=== PATIENT | female | born 1935 | race Caucasian/White ===

== ENCOUNTER → 2018-02-09 | Day surgery (SDC) | payer OTHER ==
--- NOTE | 2018-02-09 12:27 | RAD REPORT ---
EXAM DESCRIPTION: US - Breast Core BX w/US Guidance - 02/09/2018 10:56 am CLINICAL HISTORY: R92.8 COMPARISON: Mammogram and ultrasound studies January 29 TECHNIQUE: The patient presents for ultrasound-guided biopsy of a previously detailed 3.5 mm mass or irregular parenchyma in the periareolar upper-outer quadrant of the right breast. The ultrasound-guided core biopsy procedure, risks and alternatives were discussed with the patient i n detail. After answering all questions, both oral and written consent were obtained. Time out proced ure was performed. The patient had no contraindicated allergy or medication history. Preliminary imaging identified the 3.5 mm right breast finding. The anterior breast was prepped and d raped in the usual sterile fashion. From an inferior approach, skin and deeper tissues were anestheti zed with 1% lidocaine. Under direct sonographic visualization a 14 gauge vacuum assisted core biopsy needle was advanced and placed at the inferior margin of the small mass. There were a total of 3 core biopsies obtained under direct sonographic guidance. After the initial biopsy the mass was more rozina stinct. Breast tissue was further distorted after the second biopsy. At the conclusion of the procedure a localization clip was placed under sonographic guidance. Post biopsy imaging showed no hematoma or measurable bleeding within the breast. Hemostasis was obtai daphne at the skin site with a sterile bandage placed. Post procedure care and precaution instructions were given to the patient. IMPRESSION: 1. Ultrasound-guided core biopsy was performed of the 3.5 mm spiculated mass in the cindy areolar upper outer right breast. All obtained material was given to pathology for histologic assessm ent. 2. Post biopsy localization clip was placed under ultrasound guidance. 3. The mass is small and ill-defined. The mass and adjacent tissues were distorted by the biopsy proc edure. It could not be determined at the time of the biopsy that the small mass in question was defin itively sampled. If the final pathology report does not show malignancy or does not show a definitive etiology for the mass finding, continued close mammographic surveillance would be recommended due to a possibility of false-negative biopsy.
== END ==
LOC: DS 09:20
PROVIDERS: ATTEND Internal Medicine
DX: R92.8 Other abnormal and inconclusive findings on diagnostic imaging of breast (principal)
CPT/HCPCS: 19083; 88305

== ENCOUNTER 2018-05-02 20:54 | Emergency (ER) | payer OTHER ==
--- OUTSIDE RECORDS SUMMARY | 2018-05-02 20:56 | XMS REPORT | Continuity of Care Document ---
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 Oxycodone 5 mg, 1 tab, Inactive Route: PO, Drug 2018 [place] form: TAB, Q4H, Dosing Weight 55.455, kg, PRN Pain Score 4-6, Start date: 04/21/18 12:27:00 COLLECTIONS CLERK, Duration: 30 day, Stop date: 05/21/18 12:26:00 CDTNotes: (Same as: Roxicodone) Labetalol 10 mg, 2 mL, Inactive Route: IVP, Drug 2018 [place] form: INJ, Q5Min, Dosing Weight 55.455, kg, PRN Elevated BP, Start date: 04/21/18 12:27:00 COLLECTIONS CLERK, Duration: 5 doses or times, Stop date: Limited # of timesNotes: (Same as: Normodyne, Trandate) Push over 2 minutes Give bolus over 2-3 minutes. Ketorolac 30 mg, 1 mL, Inactive Route: IVP, Drug 2018 [place] form: INJ, ONCE, Dosing Weight 55.455, kg, Start date: 04/21/18 12:27:00 COLLECTIONS CLERK, Stop date: 04/21/18 12:27:00 CSTNotes: (Same as:Toradol) IV bolus must be given >15 seconds. Give IM administration slowly and deeply into the muscle. Not for use > 4 days MEDICATION WASTE Product Size: 30 mg Product Wasted: ___ mg Naloxone 0.1 mg, 0.25 mL, Inactive 04/21/ MH Route: SUB-Q, 2018 [place] Drug form: INJ, Q6H, Dosing Weight 55.455, kg, PRN Itching, Start date: 04/21/18 12:27:00 COLLECTIONS CLERK, Duration: 30 day, Stop date: 05/21/18 12:26:00 CDTNotes: Same as Narcan Meperidine 12.5 mg, 0.25 Inactive 20/ MH mL, Route: IVP, 2018 [place] Drug form: INJ, Q30Min, Dosing Weight 55.455, kg, PRN Other -See Comment, For shivering, Start date: 04/21/18 12:27:00 COLLECTIONS CLERK, Duration: 2 doses or times, Stop date: Limited # of timesNotes: (Same As: Demerol) Albuterol 0.83 2.49 mg, 3 mL, Inactive 04/21/ MH MG/ML Inhalant Route: NEB, Drug 2018 [place] Solution form: SOLN, Q20Min, Dosing Weight 55.455, kg, PRN Wheezing, Priority: Routine, Start date: 04/21/18 12:27:00 COLLECTIONS CLERK, Duration: 30 day, Stop date: 05/21/18 13:26:00 CDTNotes: SEE RT DOCUMENTATION (Same as: Proventil) Diphenhydramine 12.5 mg, 0.25 Inactive 20/ MH mL, Route: IVP, 2018 [place] Drug form: INJ, Q6H, Dosing Weight 55.455, kg, PRN Itching, Start date: 04/21/18 12:27:00 COLLECTIONS CLERK, Duration: 30 day, Stop date: 05/21/18 12:26:00 CDTNotes: (Same as: Benadryl) Promethazine 6.25 mg, 0.25 Inactive 20/ MH mL, Route: IVPB, 2019 [place] ONCE, Dosing Weight 55.455, kg, PRN Nausea & Vomiting, Start date: 04/21/18 12:27:00 CSTNotes: Do not give IV push. (Same as: Phenergan) Ondansetron 4 mg, 2 mL, Inactive Route: IVP, Drug 2018 [place] form: INJ, ONCE, Dosing Weight 55.455, kg, PRN Nausea & Vomiting, Start date: 04/21/18 12:27:00 CSTNotes: (Same as: Zofran) MEDICATION WASTE Product Size: 4 mg Product Wasted: ___ mg Flumazenil 0.2 mg, 2 mL, Inactive Route: IVP, Drug 2018 [place] form: INJ, PRN, Dosing Weight 55.455, kg, PRN Benzodiazepine Reversal, Initial dose, Start date: 04/21/18 12:27:00 COLLECTIONS CLERK, Duration: 30 day, Stop date: 05/21/18 13:26:00 CDTNotes: (Same as: Romazicon) Acetaminophen 1,000 mg, 2 tab, Inactive Route: PO, Drug 2018 [place] form: TAB, ONCE, Dosing Weight 55.455, kg, PRN Pain Score 1-3, Start date: 04/21/18 12:27:00 CSTNotes: Max acetaminophen 4000 mg/day (4 gm/day). (Same as: Tylenol Extra Strength) Hydromorphone 0.5 mg, 0.5 mL, Inactive Route: IVP, Drug 2018 [place] form: INJ, Q5Min, Dosing Weight 55.455, kg, PRN Pain Score 7-10, Start date: 04/21/18 12:27:00 COLLECTIONS CLERK, Duration: 4 doses or times, Stop date: Limited # of timesNotes: Same as: Dilaudid Hydralazine 10 mg, 0.5 mL, Inactive Route: IVP, Drug 2018 [place] form: INJ, Q20Min, Dosing Weight 55.455, kg, PRN Elevated BP, Start date: 04/21/18 12:27:00 COLLECTIONS CLERK, Duration: 2 doses or times, Stop date: Limited # of timesNotes: (Same as: Apresoline) Push over 5 minutes hydromorphone Route: IV, Drug Inactive (ANES) form: INJ, ONCE, 2018 [place] Stop date: 04/21/18 12:27:00 COLLECTIONS CLERK Ondansetron 4 mg, 2 mL, Active Route: IVP, Drug 2018 [place] form: INJ, Q6H, Dosing Weight 55.455, kg, PRN Nausea & Vomiting, Start date: 04/21/18 12:11:00 COLLECTIONS CLERK, Duration: 30 day, Stop date: 05/21/18 12:10:00 CDTNotes: (Same as: Zofran) MEDICATION WASTE Product Size: 4 mg Product Wasted: ___ mg Acetaminophen 650 mg, 2 tab, Active Route: PO, Drug 2018 [place] form: TAB, Q4H, Dosing Weight 55.455, kg, PRN Pain 1-3/Temp > 100.4 F, Start date: 04/21/18 12:11:00 COLLECTIONS CLERK, Duration: 30 day, Stop date: 05/21/18 12:10:00 CDTNotes: Do not exceed 4 gm/day. (Same as: Tylenol) Acetaminophen 325 1 tab, Route: Active MG / Hydrocodone PO, Drug Form: 2019 [place] Bitartrate 5 MG TAB, Dosing Oral Tablet Weight 55.455, kg, Q4H, PRN Pain Score 4-6, Start date: 04/21/18 12:11:00 COLLECTIONS CLERK, Duration: 30 day, Stop date: 05/21/18 12:10:00 CDTNotes: (Same as: [place] 325/5) Do not exceed 4gm/day of acetaminophen. Morphine 2 mg, 1 mL, Active Route: IVP, Drug 2018 [place] form: SOLN, Q3H, Dosing Weight 55.455, kg, PRN Pain Score 1-3, Start date: 04/21/18 12:11:00 COLLECTIONS CLERK, Duration: 30 day, Stop date: 05/21/18 12:10:00 CDT Calcium Chloride 1,000 mL, Rate: Active 0.0014 MEQ/ML / 125 ml/hr, 2019 [place] Potassium Infuse over: 8 Chloride 0.004 hr, Route: IV, MEQ/ML / Sodium Dosing Weight Chloride 0.103 55.455 kg, Total MEQ/ML / Sodium Volume: 1,000, Lactate 0.028 Start date: MEQ/ML Injectable 04/21/18 Solution 12:11:00 COLLECTIONS CLERK, Duration: 30 day, Stop date: 05/21/18 12:10:00 CDT, 1.56, m2 ketOROLAC (ANES) IV, ONCE Inactive 2018 [place] ondansetron Route: IV, Drug Inactive MH (ANES) form: INJ, ONCE, 2018 [place] Stop date: 04/21/18 11:40:00 COLLECTIONS CLERK phenylephrine Route: IV, Drug Inactive 04/21/ MH (ANES) form: INJ, ONCE, 2018 [place] Stop date: 04/21/18 10:55:00 COLLECTIONS CLERK dexamethasone Route: IV, Drug Inactive (ANES) form: INJ, ONCE, 2018 [place] Stop date: 04/21/18 10:55:00 COLLECTIONS CLERK ePHEDrine (ANES) Route: IV, Drug Inactive MH form: INJ, ONCE, 2018 [place] Stop date: 04/21/18 10:55:00 COLLECTIONS CLERK fentaNYL (ANES) Route: IV, Drug Inactive form: INJ, ONCE, 2018 [place] Stop date: 04/21/18 10:50:00 COLLECTIONS CLERK propofol (ANES) Route: IV, Drug Inactive 04/21/ MH form: INJ, ONCE, 2018 [place] Stop date: 04/21/18 10:50:00 COLLECTIONS CLERK lidocaine (ANES) Route: IV, Drug Inactive MH form: INJ, ONCE, 2018 [place] Stop date: 04/21/18 10:50:00 COLLECTIONS CLERK ceFAZolin (ANES) Route: IV, Drug Inactive 04/21/ MH form: INJ, ONCE, 2018 [place] Stop date: 04/21/18 10:45:00 COLLECTIONS CLERK acetaminophen Route: IV, Drug Inactive MH (ANES) 10 mg form: INJ, Start 2018 [place] date: 04/21/18 10:15:00 COLLECTIONS CLERK, Stop date: 04/21/18 11:15:00 COLLECTIONS CLERK Lactated Ringers Route: IV, Total Inactive Injection IV Volume: 1,000, 2018 [place] (ANES) 1000 mL Start date: 04/21/18 9:55:00 COLLECTIONS CLERK, Stop date: 04/21/18 10:55:00 COLLECTIONS CLERK Calcium Chloride 1,000 mL, Rate: Inactive 0.0014 MEQ/ML / 25 ml/hr, Infuse 2018 [place] Potassium over: 40 hr, Chloride 0.004 Route: IV, MEQ/ML / Sodium Dosing Weight Chloride 0.103 55.455 kg, Total MEQ/ML / Sodium Volume: 1,000, Lactate 0.028 Start date: MEQ/ML Injectable 04/21/18 7:35:00 Solution COLLECTIONS CLERK, Duration: 30 day, Stop date: 05/21/18 7:34:00 CDT, 1.56, m2 Acetaminophen 325 650 mg=2 tab, On Hold MG Oral Tablet PO, Q4H, PRN 2018 [place] [Tylenol] Pain Score 6-10 Esomeprazole 40 40 mg=1 cap, PO, On Hold MG Enteric Coated Daily 2018 [place] Capsule Allergies, Adverse Reactions, Alerts Substance Category Reaction Severity Reaction Status Date Comments Source type Reported Stadol Assertion Seizure, Drug Active MH NOS, Hives allergy [place] Adhesive Assertion Itching, Allergy to Active MH Redness substance [place] Immunizations Immunization Date Given Site Status Last Updated Comments Source Results Order Name Results Value Reference Date Interpretation Comments Source Range Parthenon Parthenon Patient Name: SIDNEY SOTOMAYOR 04/21 - [facility] Node Node /2019 - [place] injection injection : 1935; Age: 82 years y/o Female NM NM MR: [id number] Read by: José Miguel Nagy MD Dictated Date/time: 04/21/18 10:32 Electronically Signed by: José Miguel Nagy MD 04/21/18 11:01 FINAL REPORT * Parthenon node injection (nuclear medicine) HISTORY: 82-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 The patient was referred for sentinel node nuclear medicine injection. TECHNIQUE: A generous portion of the right anterior breast was prepped with ChloraPrep and draped. A total of 1 mCi of technetium 99 sulfur colloid was injected divided by 4 aliquots into the subcuticul ar regions of the areola at 12:00, 3:00, 6:00, 9:00. The patient tolerated the procedure well and suffered no immediate complications. IMPRESSION: 1. Nuclear medicine sentinel node injection, right breast. SL: [id number] Breast Breast 04/07 - [facility] Complete Complete /2018 - [place] Ok US Ok US Read by: Rhea Lebron MD Dictated Date/time: 04/08/18 16:54 COMPLETE ULTRASOUND OF BOTH BREASTS AND AXILLA: 04/07/2018 Electronically Signed by: Rhea Lebron MD 04/08/18 16 :54 FINAL REPORT CLINICAL: D05.11 Intraductal Carcinoma In Situ Of Right Breast/Rt Breast Ca. COMPARISON:Comparison is made to exams dated: 04/07/2018 mammogram - [facility], 02/09/2018 ultrasound, 01/29/2018 mammogram, 2017 ultrasound, 06/23/2017 ultrasound, and 06/23/2017 mammogram. TECHNIQUE: Color flow and real-time ultrasound of both breasts four quadrants, retroareolar, bilateral axilla, right infraclavicular and internal mammary regions were performed. FINDINGS: There is 1.2 cm x 0.8 cm x 0.8 cm irregular mass in the right breast at 10 o'clock middle depth 4 cm from the nipple. This irregular mass is hypoechoic. This correlates with mammography findings. Color flow imaging demonstrates that there is vascularity present. There also is 1 cm x 1 cm x 0.8 cm irregular mass with an indistinct margin in the right breast at 10 o'clock middle depth 5 cm from the nipple. This irregular mass is hypoechoic. This correlates with mammography findings. Color flow imaging demonstrates that there is vascularity present. Additionally, there is 0.5 cm x 0.4 cm x 0.4 cm irregular mass in the right breast at 10 o'clock anterior depth 2 cm from the nipple. This irregular mass is hypoechoic. Color flow imaging demonstrates that there is vascularity present. Multiple additional suspicious subcentimeter hypoechoic masses are identified at the right breast 10 o'clock position, 6 cm from the nipple and 11 o'clock position, 5 cm from the nipple. The extent of abnormality by ultrasound measures approximately 4.5 cm at the right breast 10 o'clock position. The biopsy clip denoting the site of DCIS with suspicion for microinvasion is not definitively identified by sonography. There are no solid or cystic masses identified throughout the left breast. No abnormalities are seen in the bilateral axilla and right infraclavicular and internal mammary regions. IMPRESSION: KNOWN BIOPSY PROVEN MALIGNANCY RECOMMENDATION: Multiple irregular hypoechoic masses in the right breast 10 o'clock and 11 o'clock positions, as described above, highly suspicious for multifocal malignancy. The site of biopsy and biopsy cl ip denoting DCIS with microinvasion is not definitively identified by sonography. If breast conservation is being considered, biopsies of the masses at the right breast 10 o'clock position, 2 cm f rom the nipple and 10 o'clock position, 6 cm from the nipple, as described above may be performed for extent of disease. Additionally, breast MRI may be considered to assess full extent of disease if clinically indicated. Appropriate management and treatment of the patient's known malignancy is recommended. This exam was interpreted at [id number] for NABIL Jaimes 15. SUMMARY: These findings were discussed with the patient at the time of examination. Professional services are provided by the [facility] [place] [facility]. Rhea Lebron M.D. ms/:04/08/2018 16:54:04 Dressing Room Porter(s): Deanna [place] letter sent: BI-RADS 6 Ultrasound BI-RADS: 6 Known biopsy proven malignancy Breast Breast 04/07 - OPIJacek Mammo Diag Mammo Dia - [place] OK w sirisha OK w sirisha incl CAD incl CAD REANNA MA Read by: Rhea Lebron MD Dictated Date/time: 04/08/18 16:25 BILATERAL DIGITAL DIAGNOSTIC MAMMOGRAM 3D/2D WITH CAD: 04/07/2018 Electronically Signed by: Rhea Lebron MD 04/08/18 16 :25 FINAL REPORT CLINICAL: D05.11 Intraductal Carcinoma In Situ Of Right Breast/D05.11 Intraductal Carcinoma In Situ Of Right Breast. Current study was evaluated with a Computer Aided Detection (CAD) system. COMPARISON:Comparison is made to exams dated: 06/23/2017 mammogram and mammogram. TECHNIQUE: Digital Breast Tomosynthesis was performed and utilized for Interpretation. Current study was also evaluated with a Computer Aided Detection (CAD) system. FINDINGS: There are scattered fibroglandular densities in both breasts. There is a biopsy clip from outside facility ultrasound guided biopsy at the right breast 10 o'clock position, 3 cm from the nipple. Biopsy at this site revealed DCIS with suspicion of microinvasi on. No discrete associated mass is identified at this site. There are benign appearing calcifications in both breasts. There is 3.3 cm x 3 cm x 2.3 cm irregular mass with amorphous calcifications in the right breast at 10 o'clock middle depth 4 cm from the nipple. There is architectural distortion associated with the mass. There also is 0.4 cm irregular asymmetry in the right breast anterior depth central to the nipple seen on the craniocaudal view only 2.5 cm from the nipple. Additionally, there is 0.4 cm irregular asymmetry in the right breast anterior depth central to the nipple seen on the craniocaudal view only 4 cm from the nipple. No other significant masses, calcifications, or other findings are seen in either breast. IMPRESSION: INCOMPLETE: NEEDS ADDITIONAL IMAGING EVALUATION RECOMMENDATION:The 3.3 cm x 3 cm x 2.3 cm irregular mass in the right breast at 10 o'clock middle depth is indeterminate. An ultrasound is recommended. The 0.4 cm irregular asymmetry in the right breast anterior depth central to the nipple seen on the craniocaudal view only is indeterminate. An ultrasound is recommended. The 0.4 cm irregular asymmetry in the right breast anterior depth central to the nipple seen on the craniocaudal view only is indeterminate. An ultrasound is recommended. This exam was interpreted at [id number] for NABIL Jaimes 15. Professional services are provided by the [facility] [place] [facility]. Rhea Lebron M.D., ms/ismael:04/08/2018 16:25:53 Dressing Room Porter(s): Deanna [place] Mammogram BI-RADS: 0 Indeterminate Vital Signs Vital Sign Value Date Comments Source Systolic (mm Hg) 128 04/21/2018 [place] Diastolic (mm Hg) 60 04/21/2018 [facility] Respitory Rate 13 04/21/2018 [facility] Systolic (mm Hg) 126 04/21/2018 [place] Diastolic (mm Hg) 56 04/21/2018 [facility] Respitory Rate 12 04/21/2018 [facility] Systolic (mm Hg) 120 04/21/2018 [facility] Diastolic (mm Hg) 50 04/21/2018 [facility] Respitory Rate 21 04/21/2018 [facility] Heart Rate 69 04/19/2018 [facility] Temperature Oral (F) 98.1 F 04/19/2018 [facility] Weight 55.455 04/19/2018 [facility] BMI Calculated 23.1 04/19/2018 [facility] Height 154.94 cm 04/19/2018 [facility] Encounters Location Location Encounter Encounter Reason Attending ADM DC Status Source Details Type Number For Provider Date Date Visit [facility] Outpt Diag [id number] Trav 04/07 04/08 [facility] II /2018 [facility] Outpatient [id number] Trav 04/21 04/22 [facility] II /2018 [facility] Procedures Procedure Code Date Perfomer Comments Source Rotator cuff repair [id number] 03/02/19 [facility] 19 Esophagogastroduodenoscopy [id number] [facility] Hemorrhoidectomy [id number] [facility] Hysterectomy [id number] [facility] Suspension of bladder [id number] [facility]
--- OUTSIDE RECORDS SUMMARY | 2018-05-02 20:56 | XMS REPORT | Summary of Care ---
:1935 Author Organization [facility] Outpatient Imaging [place] Address [facility] [place], [place] [address]- Encounter HQ Encntr_alias(FIN) [id number] Date(s): 04/07/18 - 04/07/18 [facility] Outpatient Imaging [address], [address] [place] [address]- [id number] Discharge Disposition: Home or Self Care Attending Physician: Trav Felipe MD Referring Physician: Trav Felipe MD Vital Signs No data available for this section Problem List No data available for this section Allergies, Adverse Reactions, Alerts No data available for this section Medications No data available for this section Results No data available for this section Immunizations No data available for this section Procedures No data available for this section Social History No data available for this section Assessment and Plan No data available for this section
--- OUTSIDE RECORDS SUMMARY | 2018-05-02 20:56 | XMS REPORT | Summary of Care ---
:1935 Author Organization [facility] Address [id number] [place] [phone]- Encounter HQ Deneenr_jewel(FIN) [phone] Date(s): 04/21/18 - 04/21/18 [facility] [id number] [place] [address] [phone] Discharge Disposition: Home or Self Care Attending Physician: Trav Felipe MD Referring Physician: Trav Felipe MD Vital Signs Most recent to oldest 1 2 3 [Reference Range]: Height 154.94 cm (04/19/18 11:09 AM) Temperature Oral [96.4-99.1 98.1 DegF DegF] (04/19/18 11:26 AM) Blood Pressure [90-140/60-90 128/60 mmHg 126/56 mmHg 120/50 mmHg mmHg] (04/21/18 2:15 PM) (04/21/18 2:00 PM) (04/21/18 1:45 PM) Respiratory Rate [14-20 BRMIN] 13 BRMIN 12 BRMIN 21 BRMIN *LOW* *LOW* *HI* (04/21/18 2:15 PM) (04/21/18 2:00 PM) (04/21/18 1:45 PM) Peripheral Pulse Rate [60-100 69 bpm bpm] (04/19/18 11:26 AM) Weight 55.455 kg (04/19/18 11:09 AM) Body Mass Index 23.1 m2 (04/19/18 11:09 AM) Problem List Condition Effective Dates Status Health Status Informant 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 (Same as: Tylenol) Start Date: 04/21/18 Stop Date: 05/21/18 Status: Orderedacetaminophen (ANES) 10 mg Route: IV, Drug form: INJ, Start date: 04/21/18 10:15:00 QUARTER SUPERVISOR, Stop date: 11:15:00 QUARTER SUPERVISOR Start Date: 04/21/18 Stop Date: 04/21/18 Status: Completedacetaminophen-hydrocodone 325 mg-5 mg oral tablet 1 tab, Route: PO, Drug Form: TAB, Dosing Weight 55.455, kg, Q4H, PRN Pain Score 4-6, Start date: 04/21/18 12:11:00 QUARTER SUPERVISOR, Duration: 30 day, Stop date: 05/21/18 12 :10:00 CDT Notes: (Same as: [place] 325/5) Do not exceed 4gm/day of acetaminophen. Start Date: 04/21/18 Stop Date: 05/21/18 Status: OrderedANES acetaminophen 1,000 mg, 2 tab, Route: PO, Drug form: TAB, ONCE, Dosing Weight 55.455, kg, PRN Pain Score 1-3, Start date: 04/21/18 12:27:00 QUARTER SUPERVISOR Notes: Max acetaminophen 4000 mg/day (4 gm/day). (Same as: Tylenol Extra Strength) Start Date: 04/21/18 Stop Date: 04/21/18 Status: DiscontinuedANES albuterol 0.083% inhalation solution 2.49 mg, 3 mL, Route: NEB, Drug form: SOLN, Q20Min, Dosing Weight 55.455, kg, PRN Wheezing, Priority: Routine, Start date: 04/21/18 12:27:00 QUARTER SUPERVISOR, Duration: 30 day, Stop date: 05/21/18 13:26:00 CDT Notes: SEE RT DOCUMENTATION (Same as: Gilberto) Start Date: 04/21/18 Stop Date: 04/21/18 Status: DiscontinuedANES diphenhydrAMINE 12.5 mg, 0.25 mL, Route: IVP, Drug form: INJ, Q6H, Dosing Weight 55.455, kg, PRN Itching, Start date: 04/21/18 12:27:00 QUARTER SUPERVISOR, Duration: 30 day, Stop date: 12:26:00 CDT Notes: (Same as: Benadryl) Start Date: 04/21/18 Stop Date: 04/21/18 Status: DiscontinuedANES fentaNYL 25 microgram, 0.5 mL, Route: IVP, Drug form: INJ, Q5Min, Dosing Weight 55.455, kg, PRN Pain Score 4-6, Priority: Routine, Start date: 04/21/18 12:27:00 QUARTER SUPERVISOR, Duration: 4 doses or times, Stop date: Limited # of times Notes: (Same as: Sublimaze) Preservative free. Start Date: 04/21/18 Stop Date: 04/21/18 Status: DiscontinuedANES fentaNYL 50 microgram, 1 mL, Route: IVP, Drug form: INJ, Q5Min, Dosing Weight 55.455, kg , PRN Pain Score 7-10, Priority: Routine, Start date: 04/21/18 12:27:00 QUARTER SUPERVISOR, Duration: 2 doses or times, Stop date: Limited # of times Notes: (Same as: Sublimaze) Preservative free. Start Date: 04/21/18 Stop Date: 04/21/18 Status: DiscontinuedANES flumazenil 0.2 mg, 2 mL, Route: IVP, Drug form: INJ, PRN, Dosing Weight 55.455, kg, PRN Benzodiazepine Reversal, Initial dose, Start date: 04/21/18 12:27:00 QUARTER SUPERVISOR, Duration: 30 day, Stop date: 05/21/18 13:26:00 CDT Notes: (Same as: Romazicon) Start Date: 04/21/18 Stop Date: 04/21/18 Status: DiscontinuedANES hydrALAZINE 10 mg, 0.5 mL, Route: IVP, Drug form: INJ, Q20Min, Dosing Weight 55.455, kg, PRN Elevated BP, Start date: 04/21/18 12:27:00 QUARTER SUPERVISOR, Duration: 2 doses or times, Stop date: Limited # of times Notes: (Same as: Apresoline)Push over 5 minutes Start Date: 04/21/18 Stop Date: 04/21/18 Status: DiscontinuedANES HYDROmorphone 0.5 mg, 0.5 mL, Route: IVP, Drug form: INJ, Q5Min, Dosing Weight 55.455, kg, PRN Pain Score 7-10, Start date: 04/21/18 12:27:00 QUARTER SUPERVISOR, Duration: 4 doses or times, Stop date: Limited # of times Notes: Same as: Dilaudid Start Date: 04/21/18 Stop Date: 04/21/18 Status: DiscontinuedANES ketOROLAC 30 mg, 1 mL, Route: IVP, Drug form: INJ, ONCE, Dosing Weight 55.455, kg, Start date: 04/21/18 12:27:00 QUARTER SUPERVISOR, Stop date: 04/21/18 12:27:00 QUARTER SUPERVISOR Notes: (Same as:Toradol) IV bolus must be given >15 seconds. Give IM administration slowly and deeply into the muscle.Not for use > 4 days MEDICATION WASTE Product Size: 30 mgProduct Wasted: ___ mg Start Date: 04/21/18 Stop Date: 04/21/18 Status: DiscontinuedANES labetalol 10 mg, 2 mL, Route: IVP, Drug form: INJ, Q5Min, Dosing Weight 55.455, kg, PRN Elevated BP, Start date: 04/21/18 12:27:00 QUARTER SUPERVISOR, Duration: 5 doses or times, Stop date: Limited # of times Notes: (Same as: Normodyne, Trandate)Push over 2 minutes Give bolus over 2-3 minutes. Start Date: 04/21/18 Stop Date: 04/21/18 Status: DiscontinuedANES meperidine 12.5 mg, 0.25 mL, Route: IVP, Drug form: INJ, Q30Min, Dosing Weight 55.455, kg, PRN Other -See Comment, For shivering, Start date: 04/21/18 12:27:00 QUARTER SUPERVISOR, Duration: 2 doses or times, Stop date: Limited # of times Notes: (Same As: Demerol) Start Date: 04/21/18 Stop Date: 04/21/18 Status: DiscontinuedANES naloxone 0.1 mg, 0.25 mL, Route: SUB-Q, Drug form: INJ, Q6H, Dosing Weight 55.455, kg, PRN Itching, Start date: 04/21/18 12:27:00 QUARTER SUPERVISOR, Duration: 30 day, Stop date: 12:26:00 CDT Notes: Same as Narcan Start Date: 04/21/18 Stop Date: 04/21/18 Status: DiscontinuedANES naloxone 0.4 mg, 1 mL, Route: IVP, Drug form: INJ, Q2MIN, Dosing Weight 55.455, kg, PRN Narcotic Reversal, Start date: 04/21/18 12:27:00 QUARTER SUPERVISOR, Duration: 8 doses or times , Stop date: Limited # of times Notes: Same as Narcan Start Date: 04/21/18 Stop Date: 04/21/18 Status: DiscontinuedANES ondansetron 4 mg, 2 mL, Route: IVP, Drug form: INJ, ONCE, Dosing Weight 55.455, kg, PRN Nausea & Vomiting, Start date: 04/21/18 12:27:00 QUARTER SUPERVISOR Notes: (Same as: Parker) MEDICATION WASTE Product Size: 4 mgProduct Wasted: ___ mg Start Date: 04/21/18 Stop Date: 04/21/18 Status: DiscontinuedANES oxyCODONE 5 mg, 1 tab, Route: PO, Drug form: TAB, Q4H, Dosing Weight 55.455, kg, PRN Pain Score 4-6, Start date: 04/21/18 12:27:00 QUARTER SUPERVISOR, Duration: 30 day, Stop date: 05/21 12:26:00 CDT Notes: (Same as: Roxicodone) Start Date: 04/21/18 Stop Date: 04/21/18 Status: DiscontinuedANES oxyCODONE 10 mg, 2 tab, Route: PO, Drug form: TAB, Q4H, Dosing Weight 55.455, kg, PRN Pain Score 7-10, Start date: 04/21/18 12:27:00 QUARTER SUPERVISOR, Duration: 30 day, Stop date : 05/21/18 12:26:00 CDT Notes: (Same as: Roxicodone) Start Date: 04/21/18 Stop Date: 04/21/18 Status: DiscontinuedANES promethazine + Sodium Chloride 0.9% IV 50 mL 6.25 mg, 0.25 mL, Route: IVPB, ONCE, Dosing Weight 55.455, kg, PRN Nausea & Vomiting, Start date: 04/21/18 12:27:00 QUARTER SUPERVISOR Notes: Do not give IV push. (Same as: Phenergan) Start Date: 04/21/18 Stop Date: 04/21/18 Status: DiscontinuedceFAZolin (ANES) Route: IV, Drug form: INJ, ONCE, Stop date: 04/21/18 10:45:00 QUARTER SUPERVISOR Start Date: 04/21/18 Stop Date: 04/21/18 Status: Completeddexamethasone (ANES) Route: IV, Drug form: INJ, ONCE, Stop date: 04/21/18 10:55:00 QUARTER SUPERVISOR Start Date: 04/21/18 Stop Date: 04/21/18 Status: CompletedePHEDrine (ANES) Route: IV, Drug form: INJ, ONCE, Stop date: 04/21/18 10:55:00 QUARTER SUPERVISOR Start Date: 04/21/18 Stop Date: 04/21/18 Status: Completedesomeprazole 40 mg oral delayed release capsule 40 mg=1 cap, PO, Daily Start Date: 04/19/18 Status: SuspendedfentaNYL (ANES) Route: IV, Drug form: INJ, ONCE, Stop date: 04/21/18 10:50:00 QUARTER SUPERVISOR Start Date: 04/21/18 Stop Date: 04/21/18 Status: Completedhydromorphone (ANES) Route: IV, Drug form: INJ, ONCE, Stop date: 04/21/18 12:27:00 QUARTER SUPERVISOR Start Date: 04/21/18 Stop Date: 04/21/18 Status: CompletedketOROLAC (ANES) IV, ONCE Start Date: 04/21/18 Stop Date: 04/21/18 Status: CompletedLactated Ringers Injection IV (ANES) 1000 mL Route: IV, Total Volume: 1,000, Start date: 04/21/18 9:55:00 QUARTER SUPERVISOR, Stop date: 10:55:00 QUARTER SUPERVISOR Start Date: 04/21/18 Stop Date: 04/21/18 Status: CompletedLactated Ringers Injection IV 1,000 mL 1,000 mL, Rate: 25 ml/hr, Infuse over: 40 hr, Route: IV, Dosing Weight 55.455 kg , Total Volume: 1,000, Start date: 04/21/18 7:35:00 QUARTER SUPERVISOR, Duration: 30 day, Stop date: 05/21/18 7:34:00 CDT, 1.56, m2 Start Date: 04/21/18 Stop Date: 04/21/18 Status: DiscontinuedLactated Ringers Injection IV 1,000 mL 1,000 mL, Rate: 125 ml/hr, Infuse over: 8 hr, Route: IV, Dosing Weight 55.455 kg , Total Volume: 1,000, Start date: 04/21/18 12:11:00 QUARTER SUPERVISOR, Duration: 30 day, Stop date: 05/21/18 12:10:00 CDT, 1.56, m2 Start Date: 04/21/18 Stop Date: 05/21/18 Status: Orderedlidocaine (ANES) Route: IV, Drug form: INJ, ONCE, Stop date: 04/21/18 10:50:00 QUARTER SUPERVISOR Start Date: 04/21/18 Stop Date: 04/21/18 Status: Completedmorphine Sulfate 2 mg, 1 mL, Route: IVP, Drug form: SOLN, Q3H, Dosing Weight 55.455, kg, PRN Pain Score 1-3, Start date: 04/21/18 12:11:00 QUARTER SUPERVISOR, Duration: 30 day, Stop date: 05/21/18 12:10:00 CDT Start Date: 04/21/18 Stop Date: 05/21/18 Status: Orderedondansetron 4 mg, 2 mL, Route: IVP, Drug form: INJ, Q6H, Dosing Weight 55.455, kg, PRN Nausea & Vomiting, Start date: 04/21/18 12:11:00 QUARTER SUPERVISOR, Duration: 30 day, Stop date: 05/21/18 12:10:00 CDT Notes: (Same as: Zofran) MEDICATION WASTE Product Size: 4 mgProduct Wasted: ___ mg Start Date: 04/21/18 Stop Date: 05/21/18 Status: Orderedondansetron (ANES) Route: IV, Drug form: INJ, ONCE, Stop date: 04/21/18 11:40:00 QUARTER SUPERVISOR Start Date: 04/21/18 Stop Date: 04/21/18 Status: Completedphenylephrine (ANES) Route: IV, Drug form: INJ, ONCE, Stop date: 04/21/18 10:55:00 QUARTER SUPERVISOR Start Date: 04/21/18 Stop Date: 04/21/18 Status: Completedpropofol (ANES) Route: IV, Drug form: INJ, ONCE, Stop date: 04/21/18 10:50:00 QUARTER SUPERVISOR Start Date: 04/21/18 Stop Date: 04/21/18 Status: CompletedTylenol 325 mg oral tablet 650 mg=2 tab, PO, Q4H, PRN Pain Score 6-10 Start Date: 04/19/18 Status: Suspended Results No data available for this section Immunizations No data available for this section Procedures Procedure Date Related Diagnosis Body Site Status Rotator cuff repair 03/2018 Completed Esophagogastroduodenoscopy Completed Hemorrhoidectomy Completed Hysterectomy Completed Suspension of bladder Completed Social History Social History Type Response Smoking Status Never smoker; Exposure to Tobacco Smoke None; Cigarette Smoking Last 365 Days No; Reg Smoking Cessation Counseling No entered on: 04/21/18 Assessment and Plan No data available for this section
--- OUTSIDE RECORDS SUMMARY | 2018-05-02 20:57 | XMS REPORT ---
:1935 [facility] Address [address] [place] [address] [address] [place] [address] Care Team Providers Name Role Phone Unavailable Unavailable Unavailable Payers Payer Name Policy Type Policy Number Effective Date Expiration Date Problems This patient has no known problems. Allergies, Adverse Reactions, Alerts Allergy Name Allergy Status Severity Reaction(s) Onset Inactive Treating Comments Type Date Date Clinician polyester DA Active SV 2018-01 00:00:0 0 adhesive tape DA Active MO 2018-01 00:00:0 0 butorphanol DA Active SV 2018-01 00:00:0 0 polyester DA Active SV 2018-01 00:00:0 0 butorphanol DA Active SV 2018-01 00:00:0 0 adhesive tape DA Active MO 2018-01 00:00:0 0 Medications This patient has no known medications.
[2018-05-02] MEDS ORDERED: NA CHLORIDE 0.9% 1,000 ML ONE (22:54)
[2018-05-02 23:30] LABS: Absolute Lymphocytes (CBC) 2.2 K/uL (0.7-4.9); Absolute Monocytes 0.6 K/uL (0.1-1.3); Absolute Neutrophil 4.8 K/uL (1.8-8.0); Basophils % 0.6 % (0-1.3); Eosinophils % 2.8 % (0-4.4); Hematocrit 32.8 % (36.0-45.0); Lymphocytes % 28.1 % (15.3-44.8); MPV 9.9 fL (7.6-11.3); Monocytes % 7.7 % (3.3-12.3); RBC Red Blood Cell Count 3.74 M/uL (3.86-4.86)
[2018-05-02 23:41] LABS: Albumin 3.5 g/dL (3.4-5.0); Bilirubin Total 0.3 mg/dL (0.2-1.0); Potassium 3.9 mmol/L (3.5-5.1); Protein, Total 7.4 g/dL (6.4-8.2)
[2018-05-03 00:04] LABS: Urine Blood 2+ (NEG); Urine Glucose NEGATIVE (NEG); Urine Protein NEGATIVE (NEG)
--- NOTE | 2018-05-03 00:13 | ER ---
Nurse's Notes [facility] Name: Shivani Flynn Age: 82 yrs Sex: Female : 1935 Arrival Date: 05/02/2018 Time: 20:56 Bed 30 Private MD: Derrek Walker V Diagnosis: Cellulitis and acute lymphangitis of trunk;Urinary tract infection, site not specified Presentation: 05/02 21:00 Presenting complaint: Patient states: I had a Right mastectomy with Dr. Rodriguez at [address] 04/21 and I have some concerns about my wound and my wound drain. Pt denies fever, chills. Transition of care: patient was not received from another setting of care. Onset of symptoms was May 02, 2018. Risk Assessment: Do you want to hurt yourself or someone else? Patient reports no desire to harm self or others. Initial Sepsis Screen: Does the patient meet any 2 criteria? No. Patient's initial sepsis screen is negative. Does the patient have a suspected source of infection? No. Patient's initial sepsis screen is negative. Care prior to arrival: None. 21:00 Method Of Arrival: Ambulatory la1 21:00 Acuity: AUDREY 3 la1 Historical: - Allergies: 21:00 Stadol; la1 21:00 NO Antibiotics By mouth; la1 - Home Meds: 21:00 omeprazole 40 mg Oral cpDR 1 cap once daily [Active]; la1 - PMHx: 21:00 breast cancer; la1 - PSHx: 21:00 Right Mastectomy; la1 - Immunization history:: Adult Immunizations up to date. - Social history:: Smoking status: Patient/guardian denies using tobacco. - Ebola Screening: : No symptoms or risks identified at this time. - Family history:: not pertinent. Screenin:10 Abuse screen: Denies threats or abuse. Denies injuries from another. Nutritional mg2 screening: No deficits noted. Tuberculosis screening: No symptoms or risk factors identified. 21:36 Fall Risk None identified. mg2 Assessment: 21:33 General: Appears in no apparent distress. comfortable, Behavior is calm, cooperative. mg2 Pain: Complains of pain in right chest Pain does not radiate. Pain currently is 1 out of 10 on a pain scale. Quality of pain is described as aching, Pain began gradually, Is intermittent, Aggravated by upon palpation. Neuro: Level of Consciousness is awake, alert, obeys commands, Oriented to person, place, time, situation. Cardiovascular: Capillary refill < 3 seconds Patient's skin is warm and dry. Respiratory: Airway is patent Respiratory effort is even, unlabored, Respiratory pattern is regular, symmetrical. GI: No signs and/or symptoms were reported involving the gastrointestinal system. : No signs and/or symptoms were reported regarding the genitourinary system. EENT: No signs and/or symptoms were reported regarding the EENT system. Derm: Skin is intact, is healthy with good turgor, Skin is pink, warm \T\ dry. normal, Wound noted right breast Wound is closed, healing but with yellowish discoloration and swelling post op wound. Musculoskeletal: Circulation, motion, and sensation intact. Capillary refill < 3 seconds, Swelling present in right chest. Vital Signs: 21:04 BP 139 / 79; Pulse 77; Resp 18; Temp 97.9(O); Pulse Ox 100% on R/A; Weight 54.43 kg; la1 Height 5 ft. 1 in. (154.94 cm); Pain 0/10; 05/03 00:28 BP 145 / 78; Pulse 80; Resp 18; Pulse Ox 100% on R/A; Pain 0/10; mg2 05/02 21:04 Body Mass Index 22.67 (54.43 kg, 154.94 cm) la1 ED Course: 05/02 20:56 Patient arrived in ED. am2 20:57 Derrek Walker MD is Private Physician. am2 21:02 Triage completed. la1 21:02 Arm band placed on left wrist. la1 21:09 Dale Medina, EDILBERTO is Primary Nurse. mg2 21:35 No provider procedures requiring assistance completed. mg2 21:36 Patient has correct armband on for positive identification. mg2 22:00 Inserted saline lock: 20 gauge in left antecubital area, using aseptic technique. Blood mg2 collected. 22:05 Luis Cerda MD is Attending Physician. [facility] 05/03 00:12 Chest Single View XRAY In Process Unspecified. EDMS 00:29 IV discontinued, intact, bleeding controlled, No redness/swelling at site. Pressure mg2 dressing applied. Administered Medications: 05/02 23:08 Drug: NS 0.9% 500 ml Route: IV; Rate: bolus; Site: left antecubital; mg2 05/03 00:28 Follow up: Response: No adverse reaction; IV Status: Completed infusion mg2 05/02 23:08 Drug: NS 0.9% 1000 ml Route: IV; Rate: 125 ml/hr; Site: left antecubital; mg2 05/03 00:27 Follow up: Response: No adverse reaction; IV Status: Order to discontinue infusion mg2 00:25 Drug: Rocephin - (cefTRIAXone) 1 grams Route: IVPB; Infused Over: 30 mins; Site: left mg2 antecubital; 00:27 Follow up: Response: No adverse reaction; Medication administered at discharge. mg2 00:26 Drug: Bactrim (160 mg-800 mg (DS) 1 tablet Route: PO; mg2 00:27 Follow up: Response: No adverse reaction; Medication administered at discharge. mg2 Outcome: 00:12 Discharge ordered by . michael 00:29 Discharged to home via wheelchair, with family. mg2 00:29 Condition: stable 00:29 Discharge instructions given to patient, family, Instructed on discharge instructions, follow up and referral plans. medication usage, Demonstrated understanding of instructions, follow-up care, medications, Prescriptions given X 1. 00:29 Patient left the ED. mg2 Signatures: Dispatcher [employer] EDMS Luis Cerda MD MD cha Attema, Lee, RN RN Felicita Durham Michele, RN RN mg2 Corrections: (The following items were deleted from the chart) 00:29 05/02 21:35 Patient did not have IV access during this emergency room visit. mg2 mg2
--- NOTE | 2018-05-03 00:13 | EDPHYS ---
Physician Documentation [facility] Name: Shivani Flynn Age: 82 yrs Sex: Female : 1935 Arrival Date: 05/02/2018 Time: 20:56 Bed 30 Private MD: Derrek Walker V ED Physician Luis Cerda HPI: 05/02 22:33 This 82 yrs old Female presents to ER via Ambulatory with complaints of Post michael Surgical Pain - Mastectomy concerns. 22:33 The patient presents with an abscess of the chest, The patient presents with cellulitis michael of the chest. Description: The affected area is small. Onset: The symptoms/episode began/occurred 4 day(s) ago. Associated signs and symptoms: The patient has no apparent associated signs or symptoms. Modifying factors: the symptoms are alleviated by remaining still, repositioning , the symptoms are aggravated by movement, pressure, squeezing the lesion and expressing the contents. Severity of symptoms: At their worst the symptoms were mild. The patient has not experienced similar symptoms in the past. Historical: - Allergies: 21:00 Stadol; la1 21:00 NO Antibiotics By mouth; la1 - Home Meds: 21:00 omeprazole 40 mg Oral cpDR 1 cap once daily [Active]; la1 - PMHx: 21:00 breast cancer; la1 - PSHx: 21:00 Right Mastectomy; la1 - Immunization history:: Adult Immunizations up to date. - Social history:: Smoking status: Patient/guardian denies using tobacco. - Ebola Screening: : No symptoms or risks identified at this time. - Family history:: not pertinent. ROS: 22:33 Constitutional: Negative for fever, chills, and weight loss, Eyes: Negative for injury, michael pain, redness, and discharge, ENT: Negative for injury, pain, and discharge, Neck: Negative for injury, pain, and swelling, Cardiovascular: Negative for chest pain, palpitations, and edema, Respiratory: Negative for shortness of breath, cough, wheezing, and pleuritic chest pain, Abdomen/GI: Negative for abdominal pain, nausea, vomiting, diarrhea, and constipation, Back: Negative for injury and pain, : Negative for injury, bleeding, discharge, and swelling, MS/Extremity: Negative for injury and deformity, Neuro: Negative for headache, weakness, numbness, tingling, and seizure. 22:33 Skin: Positive for erythema, swelling, of the chest. Exam: 22:33 Constitutional: This is a well developed, well nourished patient who is awake, alert, michael and in no acute distress. Head/Face: Normocephalic, atraumatic. Eyes: Pupils equal round and reactive to light, extra-ocular motions intact. Lids and lashes normal. Conjunctiva and sclera are non-icteric and not injected. Cornea within normal limits. Periorbital areas with no swelling, redness, or edema. ENT: Nares patent. No nasal discharge, no septal abnormalities noted. Tympanic membranes are normal and external auditory canals are clear. Oropharynx with no redness, swelling, or masses, exudates, or evidence of obstruction, uvula midline. Mucous membranes moist. Neck: Trachea midline, no thyromegaly or masses palpated, and no cervical lymphadenopathy. Supple, full range of motion without nuchal rigidity, or vertebral point tenderness. No Meningismus. Cardiovascular: Regular rate and rhythm with a normal S1 and S2. No gallops, murmurs, or rubs. Normal PMI, no JVD. No pulse deficits. Respiratory: Lungs have equal breath sounds bilaterally, clear to auscultation and percussion. No rales, rhonchi or wheezes noted. No increased work of breathing, no retractions or nasal flaring. Abdomen/GI: Soft, non-tender, with normal bowel sounds. No distension or tympany. No guarding or rebound. No evidence of tenderness throughout. Back: No spinal tenderness. No costovertebral tenderness. Full range of motion. Female : Normal external genitalia. Skin: Warm, dry with normal turgor. Normal color with no rashes, no lesions, and no evidence of cellulitis. MS/ Extremity: Pulses equal, no cyanosis. Neurovascular intact. Full, normal range of motion. Neuro: Awake and alert, GCS 15, oriented to person, place, time, and situation. Cranial nerves II-XII grossly intact. Motor strength 5/5 in all extremities. Sensory grossly intact. Cerebellar exam normal. Normal gait. Psych: Awake, alert, with orientation to person, place and time. Behavior, mood, and affect are within normal limits. 22:33 Chest/axilla: Inspection: normal, Palpation: tenderness, that is mild, that is moderate, of the anterior aspect of right upper chest. Vital Signs: 21:04 BP 139 / 79; Pulse 77; Resp 18; Temp 97.9(O); Pulse Ox 100% on R/A; Weight 54.43 kg; la1 Height 5 ft. 1 in. (154.94 cm); Pain 0/10; 05/03 00:28 BP 145 / 78; Pulse 80; Resp 18; Pulse Ox 100% on R/A; Pain 0/10; mg2 05/02 21:04 Body Mass Index 22.67 (54.43 kg, 154.94 cm) la1 MDM: 05/02 22:05 Patient medically screened. [facility] 22:35 Data reviewed: vital signs, nurses notes, lab test result(s), EKG, radiologic studies, [facility] plain films. 05/02 22:32 Order name: CBC with Diff; Complete Time: 23:58 [facility] 05/02 22:32 Order name: Comprehensive Metabolic Panel; Complete Time: 23:58 [facility] 05/02 22:32 Order name: Urine Culture [facility] 05/02 22:32 Order name: Chest Single View XRAY [facility] 05/02 22:49 Order name: Urine Dipstick--Ancillary (enter results); Complete Time: 00:09 or 05/02 22:32 Order name: Urine Dipstick-Ancillary (obtain specimen); Complete Time: 23:08 [facility] Administered Medications: 23:08 Drug: NS 0.9% 500 ml Route: IV; Rate: bolus; Site: left antecubital; mg2 05/03 00:28 Follow up: Response: No adverse reaction; IV Status: Completed infusion [facility] 05/02 23:08 Drug: NS 0.9% 1000 ml Route: IV; Rate: 125 ml/hr; Site: left antecubital; mg2 05/03 00:27 Follow up: Response: No adverse reaction; IV Status: Order to discontinue infusion mg2 00:25 Drug: Rocephin - (cefTRIAXone) 1 grams Route: IVPB; Infused Over: 30 mins; Site: left [facility] antecubital; 00:27 Follow up: Response: No adverse reaction; Medication administered at discharge. mg2 00:26 Drug: Bactrim (160 mg-800 mg (DS) 1 tablet Route: PO; mg2 00:27 Follow up: Response: No adverse reaction; Medication administered at discharge. mg2 Disposition: 05/03/18 00:12 Discharged to Home. Impression: Cellulitis and acute lymphangitis of trunk, Urinary tract infection, site not specified. - Condition is Stable. - Discharge Instructions: Dysuria, Urinary Tract Infection, Adult, Urinary Tract Infection, Adult, [id number], Antibiotic Medicine, Adult, Antibiotic Medicine, Sobe-et-Fone. - Prescriptions for Bactrim DS 800- 160 mg Oral Tablet - take 1 tablet by ORAL route every 12 hours for 7 days; 14 tablet. - Medication Reconciliation Form, Thank You Letter, Antibiotic Education, Prescription Opioid Use form. - Follow up: Private Physician; When: Today; Reason: Recheck today's complaints, Continuance of care, Re-evaluation by your physician. - Problem is new. - Symptoms have improved. Signatures: Dispatcher [employer] EDMS Luis Cerda MD MD cha Attema, Lee RN RN la1 Dale Medina RN RN mg2 Corrections: (The following items were deleted from the chart) 00:29 00:12 05/03/2018 00:12 Discharged to Home. Impression: Cellulitis and acute mg2 lymphangitis of trunk; Urinary tract infection, site not specified. Condition is Stable. Forms are Medication Reconciliation Form, Thank You Letter, Antibiotic Education, Prescription Opioid Use. Follow up: Private Physician; When: Today; Reason: Recheck today's complaints, Continuance of care, Re-evaluation by your physician. Problem is new. Symptoms have improved. michael
[2018-05-03] MEDS ORDERED: CEFTRIAXONE/SWI 1gm 1 GM/10 ML SYR ONE (00:24)
[2018-05-03] MEDS ORDERED: SMZ./TMP. 800/160 MG TABLET ONE (00:24)
--- NOTE | 2018-05-03 07:52 | RAD REPORT ---
EXAM DESCRIPTION: Yary Single View05/03/2018 12:03 am CLINICAL HISTORY: Cough COMPARISON: None FINDINGS: The lungs appear clear of acute infiltrate. The heart is normal size. A tube overlies the right chest which may represent a drain IMPRESSION: No acute abnormalities displayed
== END 2018-05-03 00:29 | disposition home or self-care (01) ==
LOC: ER 20:54
DX: L03.313 Cellulitis of chest wall (principal); I89.1 Lymphangitis; N39.0 Urinary tract infection, site not specified; C50.919 Malignant neoplasm of unspecified site of unspecified female breast; Z88.5 Allergy status to narcotic agent; Z90.11 Acquired absence of right breast and nipple
CPT/HCPCS: 96361; 87088; 85025; 87086; 36415; 81003; 80053; 71045; 96374; 99284; J0696; J7030

== ENCOUNTER 2018-06-04 14:11 | Emergency (ER) | payer OTHER ==
--- OUTSIDE RECORDS SUMMARY | 2018-06-04 14:17 | XMS REPORT ---
:1935 [facility] Address [address] [place] [address] [address] [place] [address] Care Team Providers Name Role Phone Unavailable [...]
--- NOTE | 2018-06-04 15:04 | ER ---
Nurse's Notes [facility] Name: Shivani Flynn Age: 82 yrs Sex: Female : 1935 Arrival Date: 06/04/2018 Time: 14:13 Bed 7 Private MD: Derrek Walker V Diagnosis: Urinary tract infection, site not specified Presentation: 06/04 14:29 Presenting complaint: Patient states: i think i have a bladder infection, im going hj frequently and its garvey when i pee; denies fever and chills;. Transition of care: patient was not received from another setting of care. Onset of symptoms was June 04, 2018. Risk Assessment: Do you want to hurt yourself or someone else? Patient reports no desire to harm self or others. Initial Sepsis Screen: Does the patient meet any 2 criteria? Yes Does the patient have a suspected source of infection? Yes:. Care prior to arrival: None. 14:29 Method Of Arrival: Ambulatory 14:29 Acuity: AUDREY 3 hj Triage Assessment: 14:31 General: Appears in no apparent distress. uncomfortable, Behavior is calm, cooperative, hj appropriate for age. Pain: Complains of pain in pelvis Pain currently is 8 out of 10 on a pain scale. Historical: - Allergies: 14:31 NO Antibiotics By mouth; hj 14:31 Stadol; hj - Home Meds: 14:31 omeprazole 40 mg Oral cpDR 1 cap once daily [Active]; hj - PMHx: 14:31 breast cancer; hj - PSHx: 14:31 Right Mastectomy; hj - Immunization history:: Adult Immunizations up to date. - Social history:: Smoking status: Patient/guardian denies using tobacco, Patient/guardian denies using alcohol. - Ebola Screening: : Patient negative for fever greater than or equal to 101.5 degrees Fahrenheit, and additional compatible Ebola Virus Disease symptoms Patient denies exposure to infectious person Patient denies travel to an Ebola-affected area in the 21 days before illness onset. Screenin:31 Abuse screen: Denies threats or abuse. Denies injuries from another. Nutritional hj screening: No deficits noted. Tuberculosis screening: No symptoms or risk factors identified. Fall Risk None identified. Assessment: 15:00 General: Appears in no apparent distress. uncomfortable, Behavior is calm, cooperative, jl7 appropriate for age, Reports "My just on the fourth floor and I need to get up there.". Vital Signs: 14:32 BP 119 / 68; Pulse 80; Resp 18; Temp 97.5(O); Pulse Ox 99% on R/A; Weight 53.98 kg; hj Height 5 ft. 1 in. (154.94 cm); Pain 8/10; 14:32 Body Mass Index 22.49 (53.98 kg, 154.94 cm) hj ED Course: 14:13 Patient arrived in ED. rg4 14:14 Derrek Walker MD is Private Physician. rg4 14:21 Triage completed. hj 14:32 Arm band placed on right wrist. hj 14:32 Patient has correct armband on for positive identification. Placed in gown. Bed in low hj position. Call light in reach. Side rails up X 1. 14:43 [facility]adhan [facility] 14:43 Daren Hassan MD is Attending Physician. [facility] 14:51 Jennifer Mccullough, RN is Primary Nurse. aj1 14:59 Mony Goodman RN is Primary Nurse. jl7 15:00 Urine collected: clean catch specimen, cloudy. jl7 15:03 Derrek Walker MD is Referral Physician. [facility] 15:24 No provider procedures requiring assistance completed. Patient did not have IV access jl7 during this emergency room visit. Administered Medications: 15:10 Drug: Rocephin (cefTRIAXone) 1 grams Route: IM; Site: left ventrogluteal; 7 15:26 Follow up: Response: No adverse reaction [facility] Outcome: 15:04 Discharge ordered by . [facility] 15:25 Discharged to home ambulatory. 7 15:25 Condition: stable 15:25 Discharge instructions given to patient, Instructed on discharge instructions, follow up and referral plans. medication usage, Demonstrated understanding of instructions, follow-up care, medications, Prescriptions given X 1. 15:26 Patient left the ED. jl7 Addendum: 06/07/2018 07:43 Addendum: Culture Results: Positive urine culture. No further action required. Bacteria i w sensitive to prescribed antibiotic. Signatures: Jennifer Mccullough RN RN aj Sujit Pradhan PA PA jmm Williams, Irene, RN RN iw Joaquin, Lavelle, RN Sanjuanita Berkowitz rg4 Mony Goodman, RN RN jl7 Corrections: (The following items were deleted from the chart) 06/04 14:19 Presenting complaint: Patient states: my R leg is swollen and i have a wound on hj my R foot; wearing prosthetic L leg; denies fever and chills; denies SOB; 14:19 Transition of care: patient was not received from another setting of care. [facility] 14: Onset of symptoms was June 04, [address] [facility] 14:19 Risk Assessment: Do you want to hurt yourself or someone else? Patient reports no desire to harm self or others. : Initial Sepsis Screen: Does the patient meet any 2 criteria? No. Patient's initial sepsis screen is negative. Does the patient have a suspected source of infection? No. Patient's initial sepsis screen is negative. :19 Care prior to arrival: None. [facility] 14:19 Method Of Arrival: Wheelchair [facility] 14:19 Acuity: AUDREY [address] [facility] 14:34 14:32 Pulse 80bpm; Resp 18bpm; Pulse Ox 99% RA; Temp 97.5F Oral; 53.98 kg; Height 5 ft. hj 1 in.; BMI: 22.4; Pain 8/10; hj
--- NOTE | 2018-06-04 15:05 | EDPHYS ---
Physician Documentation [facility] Name: Shivani Flynn Age: 82 yrs Sex: Female : 1935 Arrival Date: 06/04/2018 Time: 14:13 Bed 7 Private MD: Derrek Walker V ED Physician Daren Hassan HPI: 06/04 14:24 This 82 yrs old Female presents to ER via Ambulatory with complaints of jmm Urinary Problem. 14:24 The patient presents with urinary symptoms, dysuria, frequency, urgency. Onset: The jmm symptoms/episode began/occurred gradually, 1 week(s) ago. Associated signs and symptoms: Pertinent negatives: fever, hematuria, vaginal bleeding, vomiting. This is an 82 year old female with a history of breast cancer that presents to the ED with complaints of increased urinary frequency, painful urination worsening over the past week. patient denies abdominal pain, denies vomiting, denies back pain. Denies chills. . Historical: - Allergies: 14:31 NO Antibiotics By mouth; 14:31 Stadol; hj - Home Meds: 14:31 omeprazole 40 mg Oral cpDR 1 cap once daily [Active]; hj - PMHx: 14:31 breast cancer; hj - PSHx: 14:31 Right Mastectomy; hj - Immunization history:: Adult Immunizations up to date. - Social history:: Smoking status: Patient/guardian denies using tobacco, Patient/guardian denies using alcohol. - Ebola Screening: : Patient negative for fever greater than or equal to 101.5 degrees Fahrenheit, and additional compatible Ebola Virus Disease symptoms Patient denies exposure to infectious person Patient denies travel to an Ebola-affected area in the 21 days before illness onset. ROS: 14:24 Constitutional: Negative for fever, chills, and weight loss, Cardiovascular: Negative jmm for chest pain, palpitations, and edema, Respiratory: Negative for shortness of breath, cough, wheezing, and pleuritic chest pain, Abdomen/GI: Negative for abdominal pain, nausea, vomiting, diarrhea, and constipation, Back: Negative for injury and pain. 14:24 : Positive for urinary symptoms. 14:24 All other systems are negative. Exam: 14:24 Constitutional: This is a well developed, well nourished patient who is awake, alert, jmm and in no acute distress. Head/Face: atraumatic. Eyes: EOMI, no conjunctival erythema appreciated ENT: Moist Mucus Membranes Neck: Trachea midline, Supple Chest/axilla: Normal chest wall appearance and motion. Cardiovascular: Regular rate and rhythm. No edema appreciated Respiratory: Normal respirations, no respiratory distress appreciated 14:24 Abdomen/GI: Inspection: abdomen appears normal, Bowel sounds: normal, Palpation: abdomen is soft and non-tender, in all quadrants. 14:24 Back: pain, is absent, ROM is normal. 14:24 Musculoskeletal/extremity: ROM: intact in all extremities. 14:24 Skin: Appearance: Color: normal in color. 14:24 Neuro: Orientation: is normal, Mentation: is normal, Memory: is normal. 14:24 Psych: Behavior/mood is pleasant, cooperative. Vital Signs: 14:32 BP 119 / 68; Pulse 80; Resp 18; Temp 97.5(O); Pulse Ox 99% on R/A; Weight 53.98 kg; hj Height 5 ft. 1 in. (154.94 cm); Pain 8/10; 14:32 Body Mass Index 22.49 (53.98 kg, 154.94 cm) MDM: 14:54 Patient medically screened. [facility] 15:03 Data reviewed: vital signs, nurses notes. Counseling: I had a detailed discussion with [facility] the patient and/or guardian regarding: the historical points, exam findings, and any diagnostic results supporting the discharge/admit diagnosis, the need for outpatient follow up, to return to the emergency department if symptoms worsen or persist or if there are any questions or concerns that arise at home. 15:22 ED course: Patient is alert and non toxic in appearance in the ED. I do not currently [facility] suspect pyelonephritis. Patient given strict return precautions, for fever, abdominal pain, flank pain, ect. Patient understood and agrees with the plan of care. . 06/04 14:55 Order name: Urine Culture [facility] 06/04 15:05 Order name: Urine Dipstick--Ancillary (enter results) 06/04 14:55 Order name: Urine Dipstick-Ancillary (obtain specimen); Complete Time: 15:22 [facility] Administered Medications: 15:10 Drug: Rocephin (cefTRIAXone) 1 grams Route: IM; Site: left ventrogluteal; jl7 15:26 Follow up: Response: No adverse reaction jl7 Disposition: 17:04 Co-signature as Attending Physician, Daren Hassan MD I agree with the assessment and kdr plan of care. Disposition: 06/04/18 15:04 Discharged to Home. Impression: Urinary tract infection, site not specified. - Condition is Stable. - Discharge Instructions: Urinary Tract Infection, Adult. - Prescriptions for Macrobid 100 mg Oral Capsule - take 1 capsule by ORAL route every 12 hours for 7 days; 14 capsule. - Medication Reconciliation Form, Thank You Letter, Antibiotic Education, Prescription Opioid Use form. - Follow up: Derrek Walker MD; When: 1 - 2 days; Reason: Recheck today's complaints, Continuance of care, Re-evaluation by your physician. Signatures: Dispatcher [employer] EDMS Daren Hassan MD MD kdr Mickail, Joel, PA PA jmm Joaquin, Henry, RN RN Mony Gurrola RN RN jl7 Corrections: (The following items were deleted from the chart) 15:26 15:04 06/04/2018 15:04 Discharged to Home. Impression: Urinary tract infection, site jl7 not specified. Condition is Stable. Forms are Medication Reconciliation Form, Thank You Letter, Antibiotic Education, Prescription Opioid Use. Follow up: Derrek Walker; When: 1 - 2 days; Reason: Recheck today's complaints, Continuance of care, Re-evaluation by your physician. demetrio
[2018-06-04] MEDS ORDERED: CEFTRIAXONE 1000 MG/VIAL ONE (15:20)
[2018-06-04] MEDS ORDERED: LIDOCAINE 1% MPF 5 ML VIAL ONE (15:21)
[2018-06-04 19:42] LABS: Urine Blood 2+ (NEG); Urine Glucose NEGATIVE (NEG); Urine Protein TRACE (NEG); Urine Specific Gravity 1.025 (1.005-1.030)
== END 2018-06-04 15:26 | disposition home or self-care (01) ==
LOC: ER 14:11
DX: N39.0 Urinary tract infection, site not specified (principal); Z85.3 Personal history of malignant neoplasm of breast
CPT/HCPCS: 81003; 87077; 87086; 87088; 87186; 96372; 99283

== ENCOUNTER 2018-12-02 17:17 | Emergency (ER) | payer OTHER ==
[2018-12-02] MEDS ORDERED: ACETAMINOPHEN 500 MG TAB ONE (18:20)
--- NOTE | 2018-12-02 18:45 | EDPHYS ---
Physician Documentation [facility] Name: Shivani Flynn Age: 83 yrs Sex: Female : 1935 Arrival Date: 12/02/2018 Time: 17:20 Bed 11 Private MD: Derrek Walker V ED Physician Luis Cerda HPI: 12/02 18:39 This 83 yrs old Female presents to ER via Wheelchair with complaints of Leg michael Pain. 18:39 The patient presents with decreased range of motion, pain, that is acute. The michael complaints affect the left knee. Context: The problem was sustained at home, resulted from an unknown cause, the patient can partially bear weight. Onset: The symptoms/episode began/occurred today, 1 month(s) ago. Modifying factors: The symptoms are alleviated by remaining still, the symptoms are aggravated by nothing. Associated signs and symptoms: The patient has no apparent associated signs or symptoms. Treatment prior to arrival includes: no previous treatment. Historical: - Allergies: 17:25 NO Antibiotics By mouth; sv 17:25 Stadol; sv - PMHx: 17:25 breast cancer; sv - PSHx: 17:25 R mastectomy; L shoulder surgery; sv - Immunization history:: Adult Immunizations up to date. - Social history:: Smoking status: Patient/guardian denies using tobacco. - Family history:: not pertinent. - Ebola Screening: : Patient negative for fever greater than or equal to 101.5 degrees Fahrenheit, and additional compatible Ebola Virus Disease symptoms Patient denies exposure to infectious person Patient denies travel to an Ebola-affected area in the 21 days before illness onset No symptoms or risks identified at this time. ROS: 18:39 Constitutional: Negative for fever, chills, and weight loss, Eyes: Negative for injury, michael pain, redness, and discharge, ENT: Negative for injury, pain, and discharge, Neck: Negative for injury, pain, and swelling, Cardiovascular: Negative for chest pain, palpitations, and edema, Respiratory: Negative for shortness of breath, cough, wheezing, and pleuritic chest pain, Abdomen/GI: Negative for abdominal pain, nausea, vomiting, diarrhea, and constipation, Back: Negative for injury and pain, : Negative for injury, bleeding, discharge, and swelling, MS/Extremity: Negative for injury and deformity, Skin: Negative for injury, rash, and discoloration, Neuro: Negative for headache, weakness, numbness, tingling, and seizure, Psych: Negative for depression, anxiety, suicide ideation, homicidal ideation, and hallucinations, Allergy/Immunology: Negative for hives, rash, and allergies, Endocrine: Negative for neck swelling, polydipsia, polyuria, polyphagia, and marked weight changes, Hematologic/Lymphatic: Negative for swollen nodes, abnormal bleeding, and unusual bruising. Exam: 18:39 Constitutional: This is a well developed, well nourished patient who is awake, alert, michael and in no acute distress. Head/Face: Normocephalic, atraumatic. Eyes: Pupils equal round and reactive to light, extra-ocular motions intact. Lids and lashes normal. Conjunctiva and sclera are non-icteric and not injected. Cornea within normal limits. Periorbital areas with no swelling, redness, or edema. ENT: Nares patent. No nasal discharge, no septal abnormalities noted. Tympanic membranes are normal and external auditory canals are clear. Oropharynx with no redness, swelling, or masses, exudates, or evidence of obstruction, uvula midline. Mucous membranes moist. Neck: Trachea midline, no thyromegaly or masses palpated, and no cervical lymphadenopathy. Supple, full range of motion without nuchal rigidity, or vertebral point tenderness. No Meningismus. Chest/axilla: Normal chest wall appearance and motion. Nontender with no deformity. No lesions are appreciated. Cardiovascular: Regular rate and rhythm with a normal S1 and S2. No gallops, murmurs, or rubs. Normal PMI, no JVD. No pulse deficits. Respiratory: Lungs have equal breath sounds bilaterally, clear to auscultation and percussion. No rales, rhonchi or wheezes noted. No increased work of breathing, no retractions or nasal flaring. Abdomen/GI: Soft, non-tender, with normal bowel sounds. No distension or tympany. No guarding or rebound. No evidence of tenderness throughout. Back: No spinal tenderness. No costovertebral tenderness. Full range of motion. Skin: Warm, dry with normal turgor. Normal color with no rashes, no lesions, and no evidence of cellulitis. Neuro: Awake and alert, GCS 15, oriented to person, place, time, and situation. Cranial nerves II-XII grossly intact. Motor strength 5/5 in all extremities. Sensory grossly intact. Cerebellar exam normal. Normal gait. Psych: Awake, alert, with orientation to person, place and time. Behavior, mood, and affect are within normal limits. 18:39 Musculoskeletal/extremity: ROM: full passive range of motion, limited active range of motion, Circulation is intact in all extremities. Sensation intact. Compartment Syndrome exam of affected extremity: is normal. Weight bearing: can bear weight with assistance only, uses crutches, DVT Exam: No signs of deep vein thrombosis. no pain, no swelling, no tenderness, negative Homans' sign noted on exam, no appreciated bluish discoloration, no erythema, no increased warmth. Vital Signs: 17:25 BP 123 / 63; Pulse 73; Resp 16; Temp 98.7; Pulse Ox 99% ; Weight 53.52 kg; Height 5 ft. sv 1 in. (154.94 cm); Pain 0/10; 18:40 BP 125 / 68; Pulse 71; Resp 16 S; Pulse Ox 99% on R/A; ca1 17:25 Body Mass Index 22.30 (53.52 kg, 154.94 cm) sv MDM: 17:43 Patient medically screened. [facility] 12/02 17:26 Order name: Knee Left 3 View XRAY 12/02 18:40 Order name: Knee Immobilizer; Complete Time: 19:13 michael 12/02 18:40 Order name: Ice pack; Complete Time: 19:13 [facility] Administered Medications: 18:23 Not Given (Duplicate Order): Tylenol 650 mg PO once ca1 18:23 Drug: Tylenol 500 mg Route: PO; ca1 19:00 Follow up: Response: No adverse reaction; Pain is decreased ca1 Disposition: 12/02/18 18:43 Discharged to Home. Impression: Pain in left leg, Pain in knee. - Condition is Stable. - Discharge Instructions: Musculoskeletal Pain, Knee Pain, Knee Pain, [id number]. - Prescriptions for Tylenol- Codeine #3 300-30 mg Oral Tablet - take 2 tablets by ORAL route every 6 hours As needed; 24 tablet. Zofran 4 mg Oral Tablet - take 1 tablet by ORAL route every 12 hours As needed; 14 tablet. Motrin IB 200 mg Oral Tablet - take 2 tablet by ORAL route every 6 hours As needed as needed with food; 40 tablet. - Medication Reconciliation Form, Thank You Letter, Antibiotic Education, Prescription Opioid Use form. - Follow up: Derrek Walker MD; When: 2 - 3 days; Reason: Recheck today's complaints, Continuance of care, Re-evaluation by your physician. Follow up: Carlos Manuel Miranda MD; When: 2 - 3 days; Reason: Recheck today's complaints, Continuance of care, Re-evaluation by your physician. - Problem is new. - Symptoms have improved. Signatures: Dispatcher [employer] Luna Tenorio RN RN Luis Sheppard MD MD cha Acob, Cheryl, RN RN ca1 Corrections: (The following items were deleted from the chart) 19:13 18:40 Crutches ordered. [facility] ca1 19:15 18:43 12/02/2018 18:43 Discharged to Home. Impression: Pain in left leg; Pain in knee. ca1 Condition is Stable. Forms are Medication Reconciliation Form, Thank You Letter, Antibiotic Education, Prescription Opioid Use. Follow up: Derrek Walker; When: 2 - 3 days; Reason: Recheck today's complaints, Continuance of care, Re-evaluation by your physician. Follow up: Carlos Manuel Miranda; When: 2 - 3 days; Reason: Recheck today's complaints, Continuance of care, Re-evaluation by your physician. Problem is new. Symptoms have improved. michael
--- NOTE | 2018-12-02 18:45 | ER ---
Nurse's Notes [facility] Name: Shivani Flynn Age: 83 yrs Sex: Female : 1935 Arrival Date: 12/02/2018 Time: 17:20 Bed 11 Private MD: Derrek Walker V Diagnosis: Pain in left leg;Pain in knee Presentation: 12/02 17:23 Presenting complaint: Patient states: left knee pain started about a month ago after sv falling but today she felt a "pop" from behind her left knee. Transition of care: patient was not received from another setting of care. Onset of symptoms was December 02, 2018. Risk Assessment: Do you want to hurt yourself or someone else? Patient reports no desire to harm self or others. Care prior to arrival: None. 17:23 Method Of Arrival: Wheelchair sv 17:23 Acuity: AUDREY 4 sv 18:00 Initial Sepsis Screen: Does the patient meet any 2 criteria? No. Patient's initial ca1 sepsis screen is negative. Does the patient have a suspected source of infection?. Historical: - Allergies: 17:25 NO Antibiotics By mouth; sv 17:25 Stadol; sv - PMHx: 17:25 breast cancer; sv - PSHx: 17:25 R mastectomy; L shoulder surgery; sv - Immunization history:: Adult Immunizations up to date. - Social history:: Smoking status: Patient/guardian denies using tobacco. - Family history:: not pertinent. - Ebola Screening: : Patient negative for fever greater than or equal to 101.5 degrees Fahrenheit, and additional compatible Ebola Virus Disease symptoms Patient denies exposure to infectious person Patient denies travel to an Ebola-affected area in the 21 days before illness onset No symptoms or risks identified at this time. Screenin:52 Abuse screen: Denies threats or abuse. Denies injuries from another. Nutritional ca1 screening: No deficits noted. Tuberculosis screening: No symptoms or risk factors identified. Fall Risk Fall in past 12 months (25 points). Ambulatory Aid- Crutches/Cane/Walker (15 pts). Gait- Impaired (20 pts.). Total Shaw Fall Scale indicates High Risk Score (45 or more points). Fall prevention measures have been instituted. Side Rails Up X 2 Frequent Obs/Assessments Occuring Family Present and informed to notify staff if the need to leave the bedside As available patient and family educated on Fall Prevention Program and Strategies. Assessment: 17:52 General: Appears in no apparent distress. comfortable, Behavior is calm, cooperative, ca1 appropriate for age. Pain: Complains of pain in left knee Pain currently is 4 out of 10 on a pain scale. at worst was 8 out of 10 on a pain scale. Aggravated by repositioning, weight bearing. Neuro: Level of Consciousness is awake, alert, obeys commands, Oriented to person, place, time, situation, Appropriate for age. Derm: Skin is intact, is healthy with good turgor, Skin is pink, warm \\T\\ dry. Musculoskeletal: Circulation, motion, and sensation intact. Capillary refill < 3 seconds, Range of motion: limited in left knee. 19:00 Reassessment: Patient appears in no apparent distress at this time. Patient is alert, ca1 oriented x 3, equal unlabored respirations, skin warm/dry/pink. Patient states feeling better. Vital Signs: 17:25 BP 123 / 63; Pulse 73; Resp 16; Temp 98.7; Pulse Ox 99% ; Weight 53.52 kg; Height 5 ft. sv 1 in. (154.94 cm); Pain 0/10; 18:40 BP 125 / 68; Pulse 71; Resp 16 S; Pulse Ox 99% on R/A; ca1 17:25 Body Mass Index 22.30 (53.52 kg, 154.94 cm) sv ED Course: 17:20 Patient arrived in ED. mr 17:20 Derrek Walker MD is Private Physician. mr 17:24 Triage completed. sv 17:25 Arm band placed on. sv 17:43 Luis Cerda MD is Attending Physician. michael 17:49 Chelsey Miller, EDILBERTO is Primary Nurse. ca1 17:52 Patient has correct armband on for positive identification. Bed in low position. Call ca1 light in reach. Side rails up X 1. Pulse ox on. NIBP on. Warm blanket given. 17:52 No provider procedures requiring assistance completed. Patient did not have IV access ca1 during this emergency room visit. 18:42 Derrek Walker MD is Referral Physician. michael 18:42 Carlos Manuel Miranda MD is Referral Physician. michael 18:46 Knee Left 3 View XRAY In Process Unspecified. EDMS 18:50 Knee immobilizer applied on left knee. ca1 Administered Medications: 18:23 Not Given (Duplicate Order): Tylenol 650 mg PO once ca1 18:23 Drug: Tylenol 500 mg Route: PO; ca1 19:00 Follow up: Response: No adverse reaction; Pain is decreased ca1 Outcome: 18:43 Discharge ordered by . michael 19:00 Discharged to home via wheelchair, with family. ca1 19:00 Condition: stable 19:00 Discharge instructions given to patient, Instructed on discharge instructions, follow up and referral plans. medication usage, Demonstrated understanding of instructions, follow-up care, medications, Prescriptions given X 3. 19:15 Patient left the ED. ca1 Signatures: Dispatcher [employer] EDLuna Cardoza RN RN sv Anderson, Corey, MD MD cha Rivera, Mary mr Acob, Cheryl, RN RN ca1 Corrections: (The following items were deleted from the chart) 19:14 18:18 BP 125 / 68; Pulse 71bpm; Resp 16bpm; Spontaneous; Pulse Ox 99% RA; ca1 ca1
[2018-12-02 19:40] VITALS: TEMP 98.7; O2SAT 99
[2018-12-02 19:42] VITALS: BP 125/68
--- NOTE | 2018-12-04 14:16 | RAD REPORT ---
EXAM DESCRIPTION: RAD - Knee Left 3 View - 12/03/2018 7:03 pm CLINICAL HISTORY: Left knee pain status post injury FINDINGS: No fracture or dislocation is seen. Osteoporosis If the patient continues to have symptoms to suggest an occult fracture, ligamentous or meniscal inju ry then MRI would be recommended
== END 2018-12-02 19:15 | disposition home or self-care (01) ==
LOC: ER 17:17
DX: M25.562 Pain in left knee (principal); Z85.3 Personal history of malignant neoplasm of breast; Z88.5 Allergy status to narcotic agent; Z88.8 Allergy status to other drugs, medicaments and biological substances
CPT/HCPCS: 99284

== ENCOUNTER 2020-05-03 21:39 | Observation (INO) | payer OTHER ==
--- OUTSIDE RECORDS SUMMARY | 2020-05-03 21:42 | XMS REPORT | Continuity of Care Document ---
:1935 Author Organization [facility] t Address [address] [place] [address] Care Team Providers Name Role Phone ALEXEY Primary Care Physician Unavailable Jamel DAVIDSON, A Attending Clinician Only, Test Attending Clinician Unavailable Doctor Unassigned, Name Attending Clinician Unavailable Pob, Lab Main Attending Clinician Unavailable Jamel DAVIDSON, A Admitting Clinician Payers Payer Name Policy Type Policy Number Effective Date Expiration Date S ource Problems Condition Condition Condition Status Onset Resolution Last Treating Co mments Source Name Details Category Date Date Treatment Clinician Date Hematoma Hematoma Disease Active Overview: 3 Right Anderso 00:00: chest n 00 wall/axil la 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 00:00: suspicion n in situ of in situ of 00 for right right microinva breast breast uche Gastric Gastric Disease Active reflux reflux 03-02 Anderso 00:00: n 00 Gastric Gastric Disease Active Overview: polyp polyp 03-02 sees Anderso 00:00: gastroent n 00 erologist regularly ; polyps regularly removed with EGD Hearing Hearing Disease Active Overview: loss loss 03-02 using Anderso 00:00: hearing n 00 aids Urinary Urinary Disease Active incontinen incontinen 03-02 An derso ce ce 00:00: n 00 Arthritis Arthritis Disease Active Overview: 03-02 hands, Anderso 00:00: knees n 00 Osteoporos Osteoporos Disease Active M D is is 03-02 Anderso 00:00: n 00 Hyperlipid Hyperlipid Disease Active Overview : MD tiana montiel 03-02 decided Anderso 00:00: not to n 00 take medicatio n due to it causing gastric upset Iron Iron Disease Active Overview: deficiency deficiency has An derso anemia anemia required n iron infusions , last 12/2017 Tear of Tear of Disease Active Overview: left left surgery Anderso rotator rotator 01/2018 n cuff cuff Tear of Tear of Disease Active Overview: right right no Anderso rotator rotator surgery n cuff cuff yet Anxiety Anxiety Disease Active MD Walters n Shoulder Shoulder Disease Active Overview: pain pain From left Anderso shoulder n surgery Bilateral Bilateral Disease Active Overview: shoulder shoulder Left>righ And erso joint joint t from n stiffness stiffness recent surgery.L eft arm in sling. Cannot raise left arm.In physical therapy. Allergies, Adverse Reactions, Alerts Allergy Allergy Status Severity Reaction(s) Onset Inactive Treating Comm ents Source Name Type Date Date Clinician meperidi DA Active U 2018-03 [facility] [place] [facility] neomycin DA Active [facility] 10-06 [facility] bacitrac DA Active [facility] in 10-06 00:[facility]: [facility]ope [facility] ciproflo DA Active [facility] xacin 10-06 00:00: [facility]ope [facility] polymyxi DA Active [facility] n B 10-06 00:00: [facility]ope [facility] polyeste DA Active SV 2017-03 [facility] r fibers 04-18 [place] 00:00: Orthope [facility] adhesive DA Active MO 2017-03 [facility] tape 04-18 [place] 00:00: Orthope [facility] butorpha DA Active SV 2017-03 [facility] nol 04-18 [place] 00:00: Orthope [facility] polyeste DA Active SV 2017-03 [facility] r fibers 2- 00:00: Orthope 00 [facility] butorpha DA Active SV 2017-03 [facility] nol 2- 00:[facility]: Orthope 00 [facility] adhesive DA Active MO 2017-03 [facility] tape 2 00:[facility]: Orthope 00 [facility] Family History Family Member Diagnosis Comments Start Date Stop Date Source Other Bladder Cancer MD Selena galan Paternal cousin Breast cancer And erson Paternal grandfather Brain cancer MD Cerda Natural daughter Kidney cancer MD Manisha gastelum Maternal aunt Kidney cancer MD Justin son Maternal aunt Pancreatic cancer MD El nderson Maternal cousin Bilateral breast MD Cerda cancer Maternal grandmother -Unknown cancer MD Cerda Maternal uncle -Unknown cancer MD Manisha gastelum Natural mother Leukemia MD Selena galan Social History Social Habit Start Date Stop Date Quantity Comments Source Sex Assigned At MD Gooden on Tobacco use and 2018-11-03 2018-11-03 Never used MD Gooden on exposure 00:00:00 00:00:00 Alcohol intake 2018-11-03 2018-11-03 Current MD Selena galan 00:00:00 00:00:00 non-drinker of alcohol (finding) Smoking Status Start Date Stop Date Source Never smoker MD Cerda Medications Ordered Filled Start Stop Current Ordering Indication Dosage Frequency Signature Comments Components Source Medication Medication Date Date Medication? Clinician (SIG) Name Name cholecalcif Yes 5000U Take 5,000 MD salina, 9-04 Units by Selena vitamin D3, 15:15: mouth n (VITAMIN 30 daily. D3) 5,000 units tab tablet acetaminoph Yes Intraductal 1{tbl} Take 1 MD en-codeine 3-03 carcinoma tablet by Selena (TYLENOL 00:00: in situ of mouth at n #3) 300 00 right bedtime. mg-30 mg breast tablet promethazin 2017-03 Yes 12.5mg Take 12.5 e 2-19 mg by Selena (PHENERGAN) 00:00: mouth as n 12.5 mg 00 needed. tablet sucralfate 2017-03 Yes 1g Take 1 g MD (CARAFATE) 0-26 by mouth Nhan so 1 g tablet 00:00: as needed. n 00 omeprazole 2017-03 Yes 40mg Take 40 mg M D (PriLOSEC) 0-14 by mouth Nhan so 40 MG 00:00: daily. n capsule 00 Procedures This patient has no known procedures. Encounters Start End Encounter Admission Attending Care Care Encounter Source Date/Time Date/Time Type Type Clinicians Facility Department ID 2020-01-11 2020-01-11 [facility] JamelRUST [id number] 07:57:00 10:33:00 Encounter Sachin Saavedra 350.1.13.10 [place] 4.2.7.2.686 Surgical [id number] [place] [address] 2020-01-10 2020-01-10 Laboratory Only, [facility] [id number] 08:56:07 09:11:07 Only Test Keri 350.1.13.10 [place] 4.2.7.2.686 [place] [id number] 2020-01-10 2020-01-10 Orders Doctor RODRIGUEZ [id number] [id number] 00:00:00 00:00:00 Only UnassignedRICHARD 350.1.13.10 [place] [address].2.7.2.686 [id number] 2020-01-02 2020-01-02 Materials Planner Erwin, [facility] 1.2.840.114 [id number] 15:33:19 15:48:19 Visit Lab Main [place] 350.1.13.10 [place] 4.2.7.2.686 [place] [id number] [address] 2020-01-02 2020-01-02 Orders Doctor RODRIGUEZ 1.2.840.114 [id number] 00:00:00 00:00:00 Only UnassignedRICHARD 350.1.13.10 [place] [address].2.7.2.686 [id number] 2019-08-03 2019-08-03 [facility] [id number] 07:59:00 11:18:00 Encounter Sachin Saavedra 350.1.13.10 [place] 4.2.7.2.686 Surgical [id number] [place] [address] 2019-07-29 2019-07-29 Orders Doctor RODRIGUEZ 1.2.840.114 [id number] 00:00:00 00:00:00 Only Unassigned, RICHARD 350.1.13.10 [place] [facility] 4.2.7.2.686 [id number] [id number] Results Test Description Test Time Test Comments Results Result [facility] Comments - XR FLUORO FOR 2019-07-01 Patient Name: SPINE INJ 12:40:00 SIDNEY SOTOMAYOR Unit No: [id number] EXAMS: CPT CODE: [id number] XR FLUORO FOR SPINE INJ 47061 LUMBAR DISCOGRAM AND PLACEMENT OF INTRADISCAL STEROIDS REFERRING PHYSICIAN: PREOPERATIVE DIAGNOSIS: Degenerative lumbar disc disease. POSTOPERATIVE DIAGNOSIS: Lumbar degenerative disc disease 2. PROCEDURE PERFORMED: Fluoroscopically guided needle localization of the level L4-5, L5-S1 discs with provocative discography, placement of intradiscal steroids FINDINGS: The level L4-5, L5-S1 discogram showed: a) Provocation was indeterminate low-pressure disc both levels b) L4-5 disc and L5-S1 disc with annular degeneration c) Injectate volume:4 ml, 1 cc Omnipaque dye, 10 mg Kenalog,, 10 mg Ancef, 1 mL 0.75% Marcaine ANTIBIOTIC: Cefazolin IV and intradiscal ESTIMATED BLOOD LOSS:Minimal ANESTHESIA:(TIVA) Total intravenous anesthetic (patient intolerant to sedatives and hypnotics) COMPLICATIONS:None DETAILS OF PROCEDURE: After obtaining stable vital signs, informed consent and IV access, there were no laboratory, radiographic or other contraindications to proceeding. The patient received preoperative antibiotics and was taken to the fluoroscopy suite where the patient was placed in a prone position with all extremities padded and appropriate monitors placed. The patient was sterilely prepped and draped over the lumbosacral spine. Under fluoroscopic visualization the levels L4-5, L5-S1 discs were visualized and the insertion sites were marked for paramedian approaches. Lidocaine 1.5%, 2 ml, was infiltrated into the skin, subcutaneous tissue, and superficial musculature after which a 20 gauge spinal introducer needle was advanced to the level of the facets. A 25 gauge curved B-bevel needle was then passed through the introducer and advanced into the center of the disc. No paresthesias were elicited. Isovue 300 contrast was then injected with a manometric syringe to produce the discogram. [facility] [place] NAME: SIDNEY SOTOMAYOR [address] [facility] PHYS: Francis Jang MD [place], [place] [address] : 1935 AGE: 83 SEX: F LOC: AD PHONE #: [phone] EXAM DATE: 07/01/2019 [place] [facility] [place]: [phone] RAD #: D/C DT PAGE 1 Signed Report (CONTINUED) Patient Name: SIDNEY SOTOMAYOR Unit No: [id number] EXAMS: CPT CODE: [id number] XR FLUORO FOR SPINE INJ 56257 <Continued> symptomatic and peak pressures were recorded. Each disc was then injected with antibiotics and the symptomatic discs were also injected with triamcinolone/bupivacai ne. The needles were removed and sterile Band-Aids were placed over the insertion sites. The patient was taken to the recovery room in stable condition. at 1240 Reported and signed by: Francis Nick M.D. CC: Technologist: RADHAMES SIDDIQUI. RT(R) Transcribed D/ (9473) Rob [facility] NAME: SIDNEY SOTOMAYOR [address] [facility] PHYS: Francis Jang MD [place] [address] : 1935 AGE: 83 SEX: F LOC: AD PHONE #: [phone] EXAM DATE: 07/01/2019 [place]: [place] [facility] [place]: [phone] RAD #: D/C DT PAGE 2 Signed Report Patient Name: SIDNEY SOTOMAYOR Unit No: [id number] EXAMS: CPT CODE: [id number] XR FLUORO FOR SPINE INJ 44410 <Continued> Orig Print D/T: S: 07/01/2019 (8179) [facility] NAME: DRAKE SOTOMAYORARA JADA [address] [facility] PHYS: Francis Jang MD [place], [place] [address] : 1935 AGE: 83 SEX: F LOC: AD PHONE #: [phone] EXAM DATE: 07/01/2019 [place]: [place] [facility] [place] #: [phone] RAD #: D/C DT PAGE 3 Signed Report - MRI T-SPINE W/O 2019-05-04 Patient Name: CONT 06:31:00 SIDNEY SOTOMAYOR Unit No: [id number] EXAMS: CPT CODE: [id number] MRI T-SPINE W/O CONT 43739 TECHNIQUE: Multiplanar, multisequence MRI examination performed of the thoracic spine without intravenous contrast material. COMPARISON: Concurrent radiographs FINDINGS: Limited visualization the cervical spine demonstrates marked cervical spondylosis with severe central canal stenosis at C5-C6. Alignment: Thoracic kyphosis is slightly accentuated. Osseous: Numerous T1 hyperintense lesions are seen throughout the thoracic spine, likely hemangiomas. An additional T2 hyperintense lesion within the right T11 vertebral body/pedicle demonstrates a small amount of increased T1 signal and is similar to prior lumbar spine MRI. Prevertebral / Paraspinal Soft Tissues: Unremarkable. Thoracic Spinal Cord: Normal. T1-2: Small disc bulge. Right greater than left facet hypertrophy. There is mild left, moderate right foraminal stenosis without significant central canal stenosis. T2-3: Disc desiccation without significant bulge or herniation. No significant foraminal or central canal stenosis. T3-4: No significant disc bulge or herniation. No foraminal or central canal stenosis. T4-5: No significant disc bulge or herniation. No foraminal or central canal stenosis. T5-6: No disc bulge or herniation. No central canal or foraminal stenosis. T6-7: No disc bulge or herniation. No central canal or foraminal stenosis. T7-8: No disc bulge or herniation. No central canal or foraminal stenosis. T8-9: No disc bulge or herniation. No central canal or foraminal stenosis. T9-10: No disc bulge or herniation. No central canal or foraminal stenosis. T10-11: No disc bulge or herniation. No central canal or foraminal stenosis. T11-12: No disc bulge or herniation. No central canal or foraminal stenosis. [facility] NAME: SIDNEY SOTOMAYOR [address] [facility] PHYS: DOCUD - Doctor,Francis Diaz MD : 1935 AGE: 83 SEX: F [place], [place] [address] LOC: Y.MRI PHONE #: [phone] EXAM DATE: 05/02/2019 STATUS: DEP CLI FAX #: [phone] RAD #: D/C DT PAGE 1 Signed Report (CONTINUED) Patient Name: SIDNEY SOTOMAYOR Unit No: [id number] EXAMS: CPT CODE: [id number] MRI T-SPINE W/O CONT 67715 <Continued> T12-L1: No disc bulge or herniation. No central canal or foraminal stenosis. IMPRESSION: 1. Scattered degenerative changes of the thoracic spine without significant central canal stenosis visualized. 2. Indeterminate lesion within the right T11 vertebral body/pedicle which may represent an atypical hemangioma. 3. Multilevel cervical spondylosis with severe central canal stenosis at C5-C6. at 0631 Reported and signed by: Adriano Joyce M.D. CC: Francis Nick MD Technologist: Michelle Torres(R) Transcribed D/ (31) NadyaSLJ [facility] NAME: SIDNEY SOTOMAYOR [address] [facility] PHYS: Francis Jang MD : 1935 AGE: 83 SEX: F [place] [address] LOC: Y.MRI PHONE #: [phone] EXAM DATE: 05/02/2019 STATUS: DEP CLI FAX #: [phone] RAD #: D/C DT PAGE 2 Signed Report Patient Name: SIDNEY SOTOMAYOR Unit No: [id number] EXAMS: CPT CODE: [id number] MRI T-SPINE W/O CONT 55084 <Continued> Orig Print D/T: S: 05/04/2019 (0635) [facility] NAME: SIDNEY SOTOMAYOR [address] [facility] PHYS: Francis Jang MD : 1935 AGE: 83 SEX: F [place] [address] LOC: Y.MRI PHONE #: [phone] EXAM DATE: 05/02/2019 STATUS: DEP CLI FAX #: [phone] RAD #: D/C DT PAGE 3 Signed Report - XR T-SPINE 2 2019-05-03 Patient Name: VIEWS 14:09:00 SIDNEY SOTOMAYOR Unit No: [id number] EXAMS: CPT CODE: [id number] XR T-SPINE 2 VIEWS 42031 COMPARISON: Concurrent MRI. IMAGES PROVIDED: AP and lateral views of the thoracic spine FINDINGS: Alignment of the thoracic spine is within normal limits. Multiple meningiomas are better seen on MRI. No acute fracture is visualized. Mild scattered facet hypertrophy is present. Lungs are clear. Soft tissues are unremarkable. IMPRESSION: No acute findings. at 1409 Reported and signed by: Adriano Joyce M.D. CC: Francis Nick MD Technologist: Monie Michel RT.(R) Transcribed D/ (5488) [facility] NAME: SIDNEY SOTOMAYOR [address] [facility] PHYS: Francis Jang MD : 1935 AGE: 83 SEX: F [place] [address] LOC: Y.MRI PHONE #: [phone] EXAM DATE: 05/02/2019 STATUS: DEP CLI FAX #: [phone] RAD #: D/C DT PAGE 1 Signed Report Patient Name: SIDNEY SOTOMAYOR Unit No: [id number] EXAMS: CPT CODE: [id number] XR T-SPINE 2 VIEWS 97976 <Continued> Orig Print D/T: S: 05/03/2019 (7122) [facility] NAME: SIDNEY SOTOMAYOR [address] [facility] PHYS: Francis Jang MD : 1935 AGE: 83 SEX: F [place] [address] LOC: Y.MRI PHONE #: [phone] EXAM DATE: 05/02/2019 STATUS: DEP CLI FAX #: [phone] RAD #: D/C DT PAGE 2 Signed Report - XR FLUORO FOR 2018-12-22 Patient Name: SPINE INJ 12:45:00 SIDNEY SOTOMAYOR Unit No: [id number] EXAMS: CPT CODE: [id number] XR FLUORO FOR SPINE INJ 08773 LUMBAR TRANSFORAMINAL INJECTION REFERRING PHYSICIAN: PREOPERATIVE DIAGNOSIS: Degenerative Lumbar Disc Disease. POSTOPERATIVE DIAGNOSIS: Bilateral lumbar radiculopathy PROCEDURES PERFORMED 1. Fluoroscopically guided needle localization of the bilateral L4, left L5 spinal nerve/nerves with transforaminal epidural steroid injection/injections. 2. Transforaminal epidurogram/epidurogram s at bilateral L4, left L5. FINDINGS: Poor filling all. Concordant provocation bilateral L4 back, left L5 leg. Pain relief-100%. ANTIBIOTIC: Cefazolin ESTIMATED BLOOD LOSS: Minimal ANESTHESIA: (TIVA )Total intravenous anesthetic (patient intolerant to sedatives and hypnotics) COMPLICATIONS: None DETAILS OF PROCEDURE: After obtaining stable vital signs, informed consent and IV access, with no known contraindications to proceeding, the patient was taken to the fluoroscopy suite and placed in a prone position with all extremities padded and appropriate monitors placed. A sterile prep and drape was performed over the lumbosacral spine. Using fluoroscopic visualization at each level the insertion site was marked for a paravertebral approach to the foramen. Using standard technique, a 25 gauge needle was advanced to the base of the pedicle. In AP view, final positioning was obtained outside the 6 on the clock position on the pedicle. Then, 1 ml of Isovue-300 contrast was injected to produce the epidurograms. No paresthesias were elicited with needle insertion or injection and there were no signs of intravascular or intrathecal uptake. Then, with 1 ml of 4% lidocaine and 10 mg of triamcinolone was injected incrementally with frequent negative aspirations. There were no signs of intravascular or intrathecal uptake. Each subsequent level was done using the same technique and medications. The patient's vital signs remained stable. The patient was taken to the PACU in good condition. at 2032 Reported and signed by: Francis Nick M.D. CC: Technologist: Radha Martinez(R) Transcribed D/ (2565) t.[email or web address] [facility] NAME: SIDNEY SOTOMAYOR [address] [facility] PHYS: Francis Jang MD [place], [place] [address] : 1935 AGE: 83 SEX: F LOC: AD PHONE #: [phone] EXAM DATE: 12/22/2018 [place] [facility] [place]: [phone] RAD #: D/C DT PAGE 1 Signed Report Patient Name: SIDNEY SOTOMAYOR Unit No: [id number] EXAMS: CPT CODE: [id number] XR FLUORO FOR SPINE INJ 37743 <Continued> Orig Print D/T: S: 12/22/2018 (1249) [facility] [place] [place] NAME: SIDNEY SOTOMAYOR [address] [facility] PHYS: Francis Jang MD [place], [place] [address] : 1935 AGE: 83 SEX: F LOC: AD PHONE #: [phone] EXAM DATE: 12/22/2018 [place] [facility] [place] #: [phone] RAD #: D/C DT PAGE 2 Signed Report - XR L-SPINE 2018-12-10 Patient Name: W/BEND VIEW 12:28:00 SIDNEY SOTOMAYOR Unit No: [id number] EXAMS: CPT CODE: [id number] XR L-SPINE W/BEND VIEW 75118 MRI OF THE LUMBAR SPINE: DIAGNOSIS: 1. At L1-2, disc desiccation. No central canal or foraminal stenosis. 2. At L2-3, disc desiccation. Mild central canal stenosis. No foraminal stenosis. 3. At L3-4, disc desiccation. Mild central canal stenosis. Mild facet arthropathy. No foraminal stenosis. There is a benign hemangioma present within the L3 vertebral body. 4. At L4-5, moderate disc degeneration. Grade 1 spondylolisthesis of L4 and L5. Marked hypertrophic central canal stenosis secondary to thickening of the ligamentum flavum and marked bilateral facet arthropathy. Moderate bilateral lateral gutter stenosis. No foraminal stenosis. 5. At L5-S1, mild disc degeneration. No central canal or foraminal stenosis. Mild facet arthropathy. There is an atypical hemangioma present within the L5 vertebral body. COMMENT: COMPARISON: No prior exams available. Sagittal T1, T2 and STIR and axial T1 and T2-weighted sequences are obtained of the lumbar spine. The lumbar vertebrae are within normal limits in signal. The findings are as above. The conus is in the expected location. 7 VIEW LUMBAR SPINE WITH FLEXION AND EXTENSION COMMENT: Grade 1 spondylolisthesis of L4 and L5. This is slightly more pronounced in the flexed position. Pedicles and transverse processes are intact. Mild levoscoliosis. Mild degeneration of the SI joints. at 1228 Reported and signed by: Angy Frey MD CC: Francis Nick MD Technologist: Monie Michel RT.(R) Transcribed D/ (2301) [email or web address] [facility] NAME: SIDNEY SOTOMAYOR [address] [facility] PHYS: Francis Jang MD : 1935 AGE: 83 SEX: F [place] [address] LOC: Y.MRI PHONE #: [phone] EXAM DATE: 12/10/2018 STATUS: REG CLI FAX #: [phone] RAD #: D/C DT PAGE 1 Signed Report Patient Name: SIDNEY SOTOMAYOR Unit No: [id number] EXAMS: CPT CODE: [id number] XR L-SPINE W/BEND VIEW 08170 <Continued> Orig Print D/T: S: 12/10/2018 (5032) [facility] NAME: SIDNEY SOTOMAYOR [address] [facility] PHYS: Francis Jang MD : 1935 AGE: 83 SEX: F [place] [address] LOC: Y.MRI PHONE #: [phone] EXAM DATE: 12/10/2018 STATUS: REG CLI FAX #: [phone] RAD #: D/C DT PAGE 2 Signed Report - MRI L-SPINE W/O 2018-12-10 Patient Name: CONT 12:28:00 SIDNEY SOTOMAYOR Unit No: [id number] EXAMS: CPT CODE: [id number] MRI L-SPINE W/O CONT 61964 MRI OF THE LUMBAR SPINE: DIAGNOSIS: 1. At L1-2, disc desiccation. No central canal or foraminal stenosis. 2. At L2-3, disc desiccation. Mild central canal stenosis. No foraminal stenosis. 3. At L3-4, disc desiccation. Mild central canal stenosis. Mild facet arthropathy. No foraminal stenosis. There is a benign hemangioma present within the L3 vertebral body. 4. At L4-5, moderate disc degeneration. Grade 1 spondylolisthesis of L4 and L5. Marked hypertrophic central canal stenosis secondary to thickening of the ligamentum flavum and marked bilateral facet arthropathy. Moderate bilateral lateral gutter stenosis. No foraminal stenosis. 5. At L5-S1, mild disc degeneration. No central canal or foraminal stenosis. Mild facet arthropathy. There is an atypical hemangioma present within the L5 vertebral body. COMMENT: COMPARISON: No prior exams available. Sagittal T1, T2 and STIR and axial T1 and T2-weighted sequences are obtained of the lumbar spine. The lumbar vertebrae are within normal limits in signal. The findings are as above. The conus is in the expected location. 7 VIEW LUMBAR SPINE WITH FLEXION AND EXTENSION COMMENT: Grade 1 spondylolisthesis of L4 and L5. This is slightly more pronounced in the flexed position. Pedicles and transverse processes are intact. Mild levoscoliosis. Mild degeneration of the SI joints. at 1228 Reported and signed by: Angy Frey MD CC: Francis Nick MD Technologist: Michelle Verdugo(R) Transcribed D/ (7939) [email or web address] [facility] NAME: SIDNEY SOTOMAYOR [address] PHYS: DOCUD - DoctorFrancis MD : 1935 AGE: 83 SEX: F [place], [place] [address] LOC: Y.MRI PHONE #: [phone] EXAM DATE: 12/10/2018 STATUS: REG CLI FAX #: [phone] RAD #: D/C DT PAGE 1 Signed Report Patient Name: SIDNEY SOTOMAYOR Unit No: [id number] EXAMS: CPT CODE: [id number] MRI L-SPINE W/O CONT 12015 <Continued> Orig Print D/T: S: 12/10/2018 (1232) [facility] NAME: SIDNEY SOTOMAYOR [address] [facility] PHYS: MIKAELA - Francis Nick MD : 1935 AGE: 83 SEX: F [place], [place] [address] LOC: Y.MRI PHONE #: [phone] EXAM DATE: 12/10/2018 STATUS: REG CLI FAX #: [phone] RAD #: D/C DT PAGE 2 Signed Report - XR FLUORO FOR 2018-10-06 Patient Name: SPINE INJ 11:01:00 SIDNEY SOTOMAYOR Unit No: [id number] EXAMS: CPT CODE: [id number] XR FLUORO FOR SPINE INJ 55871 CERVICAL TRANSFORAMINAL INJECTION REFERRING PHYSICIAN: PREOPERATIVE DIAGNOSIS: Cervical radiculitis POSTOPERATIVE DIAGNOSIS: Left cervical radiculopathy PROCEDURES PERFORMED: Fluoroscopically guided needle localization of the left C5 spinal nerves with transforaminal epidural steroid injection/injections. 2. Transforaminal epidurogram/epidurogram s at left C5 FINDINGS: Poor filling left C5. Concordant provocation left C5 shoulder. Pain relief-100%. ANTIBIOTICS:Cefazolin ESTIMATED BLOOD LOSS: Minimal ANESTHESIA: (TIVA ) Total intravenous anesthetic (patient intolerant to sedatives and hypnotics) COMPLICATIONS: None DETAILS OF PROCEDURE: After obtaining stable vital signs, informed consent and IV access, with no known contraindications to proceeding, the patient was taken to the fluoroscopy suite and placed in a supine position with all extremities padded and appropriate monitors placed. A sterile prep and drape was performed over the cervical spine. Using fluoroscopic visualization at each level the insertion site was marked for a paravertebral approach to the foramen. Using standard technique, a 27gauge needle was advanced to the base of the pedicle. In AP view, final positioning was obtained outside the 6 on a clock position on the pedicle. Then, 0.5 ml of Isovue-300 contrast was injected to produce the epidurograms. No paresthesias were elicited with needle insertion or injection and there were no signs of intravascular or intrathecal uptake. Then, 0.5 ml of 4% lidocaine was injected as a test dose with no signs of intravascular or intrathecal uptake. Next, 10 mg of Decadron was injected incrementally with frequent negative aspirations.Each subsequent cervical nerve root sleeve was done with the same technique and medications were used.There were no signs of intravascular or intrathecal uptake. The patient's vital signs remained stable. The patient was taken to the PACU in good condition. at 1101 Reported and signed by: Francis Nick M.D. [facility] NAME: SIDNEY SOTOMAYORS [address] [facility] PHYS: Francis Jang MD [place] [address] : 1935 AGE: 83 SEX: F LOC: AD PHONE #: [phone] EXAM DATE: 10/06/2018 STATUS: REG SD FAX #: [phone] RAD #: D/C DT PAGE 1 Signed Report (CONTINUED) Patient Name: SIDNEY SOTOMAYOR Unit No: [id number] EXAMS: CPT CODE: [id number] XR FLUORO FOR SPINE INJ 10432 <Continued> CC: Technologist: Radha Martinez(R) Transcribed D/ (1101) tSAMANTHA [facility] NAME: SIDNEY SOTOMAYORS [address] [facility] PHYS: Francis Jang MD [place] [address] : 1935 AGE: 83 SEX: F LOC: AD PHONE #: [phone] EXAM DATE: 10/06/2018 STATUS: REG SD FAX #: [phone] RAD #: D/C DT PAGE 2 Signed Report Patient Name: SIDNEY SOTOMAYOR Unit No: [id number] EXAMS: CPT CODE: [id number] XR FLUORO FOR SPINE INJ [id number] <Continued> Orig Print D/T: S: 10/06/2018 (5575) [facility] NAME: SIDNEY SOTOMAYOR [address] [facility] [address] PHYS: DOCUD - Doctor,Francis Diaz MD [place], [place] [address] : 1935 AGE: 83 SEX: F LOC: SuzanRANDA PHONE #: [phone] EXAM DATE: 10/06/2018 [place]US: [place] [facility] [place] #: [phone] RAD #: D/C DT PAGE 3 Signed Report
[2020-05-03] MEDS ORDERED: NA CHLORIDE 0.9% 1,000 ML ONE (22:07)
[2020-05-03] MEDS ORDERED: NA CHLORIDE 0.9% 50 ML ONE (22:08)
[2020-05-03] MEDS ORDERED: FOLIC ACID 5 MG/ML VIAL ONE (22:08)
[2020-05-03 22:29] LABS: Basophils % 1.3 % (0-1.3); Hematocrit 35.5 % (36.0-45.0); Lymphocytes % 32.7 % (15.3-44.8); MPV 9.6 fL (7.6-11.3); Protime INR 0.99; RBC Red Blood Cell Count 3.97 M/uL (3.86-4.86)
--- NOTE | 2020-05-03 22:30 | ER ---
Nurse's Notes [facility] Name: Shivani Flynn Age: 84 yrs Sex: Female : 1935 Arrival Date: 05/03/2020 Time: 21:40 Bed 4 Private MD: Diagnosis: Transient cerebral ischemic attack, unspecified;Aphasia Presentation: 05/03 21:47 Chief complaint: Patient states: Sudden onset of slurring words, R side of chest felt ll1 numb, smile was unsymmetrical 30 min [employer]. Family member rushed her in. States she can smile more symmetrically now, can speak better now. No slurring or aphasia noted. Gait steady. Coronavirus screen: Client denies travel out of the [place] in the last 14 days. At this time, the client does not indicate any symptoms associated with coronavirus-19. Ebola Screen: Patient denies travel to an Ebola-affected area in the 21 days before illness onset. An acute neurological deficit is present. The charge nurse has been notified. The patient has been moved to a treatment area. Initial Sepsis Screen: Does the patient meet any 2 criteria? No. Patient's initial sepsis screen is negative. Does the patient have a suspected source of infection? No. Patient's initial sepsis screen is negative. Risk Assessment: Do you want to hurt yourself or someone else? Patient reports no desire to harm self or others. Onset of symptoms was May 03, 2020. 21:47 Method Of Arrival: Ambulatory ll1 21:47 Acuity: AUDREY 2 ll1 Triage Assessment: 22:04 The onset of the patients symptoms was May 03, 2020 at 21:15. bb Stroke Activation: Symptom onset < 3 hours Physician: Stroke Attending; Name: ; Notified At: ; Arrived At: Physician: Chief Stroke Resident; Name: ; Notified At: ; Arrived At: Physician: Stroke Resident; Name: ; Notified At: ; Arrived At: Physician: ED Attending; Name: Prashant; Notified At: ; Arrived At: Physician: ED Resident; Name: ; Notified At: ; Arrived At: Historical: - Allergies: 21:51 NO Antibiotics By mouth; ll1 21:51 Stadol; ll1 - PMHx: 21:51 breast cancer; ll1 - PSHx: 21:51 R mastectomy; L shoulder surgery; cataract repair; ll1 - Immunization history:: Flu vaccine is up to date. - Social history:: Smoking status: Patient denies any tobacco usage or history of. - Family history:: not pertinent. Screenin:06 Abuse screen: Denies threats or abuse. Denies injuries from another. Nutritional mg2 screening: No deficits noted. Tuberculosis screening: No symptoms or risk factors identified. Fall Risk IV access (20 points). 22:08 The patient has not been NPO before screening. The patient is alert, able to follow bb commands. The patient does not exhibit slurred or garbled speech The patient is not exhibiting difficulty speaking. The patient does not exhibit difficulty understanding words. The patient is able to swallow own secretions with no drooling or need for suction. Patient tolerated one teaspoon of water. No drooling, immediate coughing, gurgling, or clearing of the throat was noted. The patient tolerated 90mL of water. No drooling, immediate coughing, gurgling, or clearing of the throat was noted. The patient passed the bedside swallow screening. Oral medications may be given as ordered. Contact Physician for further diet orders. Assessment: 21:45 VAN Scoring: Arm Drift: Patients demonstrates NO arm weakness. Patient is VAN Negative. mg2 22:18 General: Appears in no apparent distress. comfortable, Behavior is calm, cooperative. mg2 Pain: Complains of pain in right knee. Neuro: Level of Consciousness is awake, alert, obeys commands, Oriented to person, place, time, situation. Cardiovascular: Capillary refill < 3 seconds Patient's skin is warm and dry. Respiratory: Airway is patent Respiratory effort is even, unlabored, Respiratory pattern is regular, symmetrical. GI: No signs and/or symptoms were reported involving the gastrointestinal system. : No signs and/or symptoms were reported regarding the genitourinary system. EENT: No signs and/or symptoms were reported regarding the EENT system. Derm: Skin is intact, is healthy with good turgor, Skin is pink, warm \T\ dry. normal. Musculoskeletal: Circulation, motion, and sensation intact. Capillary refill < 3 seconds. 22:30 T-PA (Activase) Screening: Contraindications: Rapidly improving condition or minor mg2 deficit: Yes. 23:20 Reassessment: Patient appears in no apparent distress at this time. Patient and/or mg2 family updated on plan of care and expected duration. Pain level reassessed. Patient is alert, oriented x 3, equal unlabored respirations, skin warm/dry/pink. 05/04 01:15 Reassessment: Patient appears in no apparent distress at this time. Patient and/or mg2 family updated on plan of care and expected duration. Pain level reassessed. Patient is alert, oriented x 3, equal unlabored respirations, skin warm/dry/pink. seen by hospitalist. Vital Signs: 05/03 21:47 BP 127 / 66; Pulse 80; Resp 17; Temp 98.5(O); Pulse Ox 96% on R/A; Weight 53.07 kg; bb Height 5 ft. 1 in. (154.94 cm); Pain 0/10; 05/04 00:30 BP 127 / 89; Pulse 70; Resp 18; Temp 98; Pulse Ox 100% on R/A; mg2 01:21 BP 132 / 67; Pulse 78; Resp 18; Temp 98.1; Pulse Ox 98% on R/A; Pain 0/10; mg2 05/03 21:47 Body Mass Index 22.11 (53.07 kg, 154.94 cm) bb NIH Stroke Scale Scores: 05/03 22:17 NIHSS Score: 0 mg2 22:21 NIHSS Score: 0 michael ED Course: 21:40 Patient arrived in ED. cl3 21:45 Dale Medina, EDILBERTO is Primary Nurse. mg2 21:45 Luis Cerda MD is Attending Physician. michael 21:51 Triage completed. ll1 21:51 Arm band placed on Patient placed in an exam room, on a stretcher. ll1 22:00 Inserted saline lock: 20 gauge in right wrist, using aseptic technique. Blood mg2 collected. by EDILBERTO Siegel. 22:04 CT Stroke Brain w/o Contrast In Process Unspecified. EDMS 22:06 Stroke CXR 1 View In Process Unspecified. EDMS 22:06 Patient has correct armband on for positive identification. mg2 22:06 No provider procedures requiring assistance completed. mg2 22:28 Derrek Walker MD is Hospitalizing Provider. michael 23:50 Neck Angio In Process Unspecified. EDMS 23:50 Head angio In Process Unspecified. EDMS 05/04 01:28 Patient admitted, IV remains in place. mg2 Administered Medications: 05/03 22:03 Drug: foLIC Acid 1 mg Route: IVPB; Site: right wrist; mg2 22:39 Follow up: Response: No adverse reaction; IV Status: Completed infusion 22:04 Drug: NS 0.9% 1000 ml Route: IV; Rate: 1 bolus; Site: right wrist; mg2 22:39 Follow up: Response: No adverse reaction; IV Status: Completed infusion 22:28 Drug: Aspirin Chewable Tablet 162 mg Route: PO; 22:39 Follow up: Response: No adverse reaction 22:28 Drug: PlaVIX 75 mg Route: PO; 22:40 Follow up: Response: No adverse reaction 22:28 Drug: ProTONIX 40 mg Route: IVP; Site: right forearm; 22:40 Follow up: Response: No adverse reaction 22:34 Drug: Lipitor 20 mg Route: PO; 22:40 Follow up: Response: No adverse reaction 23:02 Drug: Rocephin 1 grams Route: IV; Rate: per protocol; Site: [place] wrist; [facility] [place]/04 01:30 Follow up: IV Status: Completed infusion mg2 Point of Care Testing: Blood Glucose: 05/03 22:04 Blood Glucose: 122 mg/dL; bb Ranges: Outcome: 22:29 Decision to Hospitalize by Provider. michael 05/04 01:28 Admitted to Med/surg accompanied by nurse, via wheelchair, room 217, with chart, Report mg2 called to EDILBERTO Neumann Condition: stable Instructed on the need for admit, Demonstrated understanding of instructions. 01:30 Patient left the ED. mg2 NIH Stroke Scale - NIH Stroke Score Date: 05/03/2020 Time: 22:17 Total Score = 0 1a. Level of Consciousness (LOC) - 0(Alert) 1b. Level of Consciousness (LOC) (Year \T\ Age) - 0(Both) 1c. LOC Commands (Open \T\ Closes Eyes/Signal Person) - 0(Both) 2. Best Gaze (Lateral Gaze Paresis) - 0(Normal) 3. Visual Field Loss - 0(No visual loss) 4. Facial Palsy - 0(Normal) 5a. Left Arm: Motor (10-second hold) - 0(No drift) 5b. Right Arm: Motor (10-second hold) - 0(No drift) 6a. Left Leg: Motor (5-second hold - always test supine) - 0(No drift) 6b. Right Leg: Motor (5-second hold - always test supine) - 0(No drift) 7. Limb Ataxia (finger/nose \T\ heel/clement - test with eyes open) - 0(Absent) 8. Sensory Loss (pinprick arms/legs/face) - 0(Normal) 9. Best Language: Aphasia (description/naming/reading) - 0(No aphasia) 10. Dysarthria (speech clarity - read or repeat words) - 0(Normal) 11. Extinction and Inattention (visual/tactile/auditory/spatial/personal) - 0(No abnormality) Initials: mg2 NIH Stroke Scale - NIH Stroke Score Date: 05/03/2020 Time: 22:21 Total Score = 0 1a. Level of Consciousness (LOC) - 0(Alert) 1b. Level of Consciousness (LOC) (Year \T\ Age) - 0(Both) 1c. LOC Commands (Open \T\ Closes Eyes/Signal Person) - 0(Both) 2. Best Gaze (Lateral Gaze Paresis) - 0(Normal) 3. Visual Field Loss - 0(No visual loss) 4. Facial Palsy - 0(Normal) 5a. Left Arm: Motor (10-second hold) - 0(No drift) 5b. Right Arm: Motor (10-second hold) - 0(No drift) 6a. Left Leg: Motor (5-second hold - always test supine) - 0(No drift) 6b. Right Leg: Motor (5-second hold - always test supine) - 0(No drift) 7. Limb Ataxia (finger/nose \T\ heel/clement - test with eyes open) - 0(Absent) 8. Sensory Loss (pinprick arms/legs/face) - 0(Normal) 9. Best Language: Aphasia (description/naming/reading) - 0(No aphasia) 10. Dysarthria (speech clarity - read or repeat words) - 0(Normal) 11. Extinction and Inattention (visual/tactile/auditory/spatial/personal) - 0(No abnormality) Initials: michael Signatures: Dispatcher [employer] EDLuis Mercedes MD MD cha Ballard, Brenda, RN RN bb Habalo, Winsy, RN RN wh Dale Medina RN RN mg2 Eden Crump cl3 Jacquie Crump RN RN ll1 Corrections: (The following items were deleted from the chart) 05/03 22:03 21:47 Pulse 80bpm; Resp 17bpm; Pulse Ox 96% RA; 53.07 kg; Height 5 ft. 1 in.; bb BMI: 22.1; Pain 0/10; ll1 05/04 01:27 01:21 Pulse 78bpm; Resp 18bpm; Pulse Ox 98% RA; Temp 98.1F; Pain 0/10; mg2 mg2
--- NOTE | 2020-05-03 22:30 | EDPHYS ---
Physician Documentation [facility] Name: Shivani Flynn Age: 84 yrs Sex: Female : 1935 Arrival Date: 05/03/2020 Time: 21:40 Bed 4 Private MD: ED Physician Luis Cerda HPI: 05/03 22:21 This 84 yrs old Female presents to ER via Ambulatory with complaints of michael Numbness Of Arm, Slurred Speech. 22:21 The patient or guardian complains of right arm numbness, right facial weakness, slurred michael speech. The complaints affect the right bicep, dorsal aspect of right forearm, right tricep and palmar aspect of right forearm. Context: The problem was sustained at home, resulted from cva/tia. Onset: The symptoms/episode began/occurred at 21:15. Treatment prior to arrival includes: no previous treatment. Modifying factors: The symptoms are alleviated by nothing. the symptoms are aggravated by nothing. Severity of symptoms: At their worst the symptoms were mild, in the emergency department the symptoms are unchanged. The patient has not experienced similar symptoms in the past. Historical: - Allergies: 21:51 NO Antibiotics By mouth; ll1 21:51 Stadol; ll1 - PMHx: 21:51 breast cancer; ll1 - PSHx: 21:51 R mastectomy; L shoulder surgery; cataract repair; ll1 - Immunization history:: Flu vaccine is up to date. - Social history:: Smoking status: Patient denies any tobacco usage or history of. - Family history:: not pertinent. ROS: 22:21 Constitutional: Negative for fever, chills, and weight loss, Eyes: Negative for injury, michael pain, redness, and discharge, ENT: Negative for injury, pain, and discharge, Neck: Negative for injury, pain, and swelling, Cardiovascular: Negative for chest pain, palpitations, and edema, Respiratory: Negative for shortness of breath, cough, wheezing, and pleuritic chest pain, Abdomen/GI: Negative for abdominal pain, nausea, vomiting, diarrhea, and constipation, Back: Negative for injury and pain, : Negative for injury, bleeding, discharge, and swelling, MS/Extremity: Negative for injury and deformity, Skin: Negative for injury, rash, and discoloration, Psych: Negative for depression, anxiety, suicide ideation, homicidal ideation, and hallucinations, Allergy/Immunology: Negative for hives, rash, and allergies, Endocrine: Negative for neck swelling, polydipsia, polyuria, polyphagia, and marked weight changes, Hematologic/Lymphatic: Negative for swollen nodes, abnormal bleeding, and unusual bruising. 22:21 Neuro: Positive for numbness, speech changes, tingling, of the right cheek, mouth and right jaw. Exam: 22:21 Constitutional: This is a well developed, well nourished patient who is awake, alert, michael and in no acute distress. Head/Face: Normocephalic, atraumatic. Eyes: Pupils equal round and reactive to light, extra-ocular motions intact. Lids and lashes normal. Conjunctiva and sclera are non-icteric and not injected. Cornea within normal limits. Periorbital areas with no swelling, redness, or edema. ENT: Nares patent. No nasal discharge, no septal abnormalities noted. Tympanic membranes are normal and external auditory canals are clear. Oropharynx with no redness, swelling, or masses, exudates, or evidence of obstruction, uvula midline. Mucous membranes moist. Neck: Trachea midline, no thyromegaly or masses palpated, and no cervical lymphadenopathy. Supple, full range of motion without nuchal rigidity, or vertebral point tenderness. No Meningismus. Chest/axilla: Normal chest wall appearance and motion. Nontender with no deformity. No lesions are appreciated. Cardiovascular: Regular rate and rhythm with a normal S1 and S2. No gallops, murmurs, or rubs. Normal PMI, no JVD. No pulse deficits. Respiratory: Lungs have equal breath sounds bilaterally, clear to auscultation and percussion. No rales, rhonchi or wheezes noted. No increased work of breathing, no retractions or nasal flaring. Abdomen/GI: Soft, non-tender, with normal bowel sounds. No distension or tympany. No guarding or rebound. No evidence of tenderness throughout. Back: No spinal tenderness. No costovertebral tenderness. Full range of motion. Female : Normal external genitalia. Skin: Warm, dry with normal turgor. Normal color with no rashes, no lesions, and no evidence of cellulitis. MS/ Extremity: Pulses equal, no cyanosis. Neurovascular intact. Full, normal range of motion. Neuro: Awake and alert, GCS 15, oriented to person, place, time, and situation. Cranial nerves II-XII grossly intact. Motor strength 5/5 in all extremities. Sensory grossly intact. Cerebellar exam normal. Normal gait. Psych: Awake, alert, with orientation to person, place and time. Behavior, mood, and affect are within normal limits. 22:29 ECG was reviewed by the Attending Physician. [facility] Vital Signs: 21:47 BP 127 / 66; Pulse 80; Resp 17; Temp 98.5(O); Pulse Ox 96% on R/A; Weight 53.07 kg; bb Height 5 ft. 1 in. (154.94 cm); Pain 0/10; 05/04 00:30 BP 127 / 89; Pulse 70; Resp 18; Temp 98; Pulse Ox 100% on R/A; mg2 01:21 BP 132 / 67; Pulse 78; Resp 18; Temp 98.1; Pulse Ox 98% on R/A; Pain 0/10; mg2 05/03 21:47 Body Mass Index 22.11 (53.07 kg, 154.94 cm) bb NIH Stroke Scale Scores: 05/03 22:17 NIHSS Score: 0 mg2 22:21 NIHSS Score: 0 michael MDM: 21:45 Patient medically screened. [facility] 22:25 Data reviewed: vital signs, nurses notes, lab test result(s), EKG, radiologic studies, [facility] CT scan, plain films. Data interpreted: associate professor of english: rate is 80 beats/min, rhythm is regular, Pulse oximetry: on. Test interpretation: by ED physician or midlevel provider: ECG, plain radiologic studies. Counseling: I had a detailed discussion with the patient and/or guardian regarding: the historical points, exam findings, and any diagnostic results supporting the discharge/admit diagnosis, lab results, radiology results, the need for further work-up and treatment in the hospital. 22:40 ED course: not a tpa candidate, all symptoms resolved, nih 0. michael 05/03 21:46 Order name: Basic Metabolic Panel mg2 05/03 21:46 Order name: CBC with Diff mg2 05/03 21:46 Order name: Protime (+inr) mg2 05/03 21:46 Order name: Ptt, Activated mg2 05/03 21:47 Order name: Basic Metabolic Panel michael 05/03 21:47 Order name: CBC with Diff michael 05/03 21:47 Order name: LFT's [facility] 05/03 21:47 Order name: Magnesium [facility] 05/03 21:47 Order name: NT PRO-BNP [facility] 05/03 21:47 Order name: PT-INR [facility] 05/03 21:46 Order name: CT Stroke Brain w/o Contrast [facility] 05/03 21:47 Order name: Troponin (emerg Dept Use Only) [facility] 05/03 21:47 Order name: Sed Rate [facility] 05/03 21:47 Order name: CRP [facility] 05/03 22:15 Order name: Glucose, Ancillary Testing; Complete Time: 22:21 ED[facility] 05/03 22:27 Order name: Lipid Profile [facility] 05/03 22:38 Order name: COVID-19 : Document "Date of Symptom Onset" if Symptomatic. tt3 05/03 22:48 Order name: Urine Culture [facility] 05/03 22:49 Order name: Urine Dipstick--Ancillary (enter results) tt3 05/03 22:49 Order name: Urine Culture [facility] 05/03 23:14 Order name: Urine Culture [facility] 05/04 00:27 Order name: SARS-COV-2 RT PCR [facility] 05/04 00:48 Order name: Urine Dipstick-Ancillary [facility] 05/04 01:04 Order name: Urine Culture [facility] 05/04 01:05 Order name: Urine Culture [facility] 05/04 01:05 Order name: CORONAVIRUS [facility] 05/03 21:46 Order name: Stroke CXR [address] [facility] 05/03 21:46 Order name: EKG; Complete Time: 21:47 [facility] 05/03 21:46 Order name: Accucheck; Complete Time: 22:05 [facility] 05/03 21:46 Order name: Cardiac monitoring; Complete Time: 22:05 [facility] 05/03 21:46 Order name: EKG - Nurse/Tech; Complete Time: 22:05 mg2 05/03 21:46 Order name: IV Saline Lock; Complete Time: 22:05 mg2 05/03 21:46 Order name: Labs collected and sent; Complete Time: 22:05 mg2 05/03 21:46 Order name: NPO; Complete Time: 22:04 mg2 05/03 21:46 Order name: O2 Per Protocol; Complete Time: 22:05 mg2 05/03 21:46 Order name: O2 Sat Monitoring; Complete Time: 22:05 mg2 05/03 21:46 Order name: Stroke Swallow Screen; Complete Time: 22:05 mg2 05/03 21:47 Order name: EKG; Complete Time: 21:49 michael 05/03 21:47 Order name: Cardiac monitoring; Complete Time: 22:04 michael 05/03 21:47 Order name: EKG - Nurse/Tech; Complete Time: 22:04 michael 05/03 21:47 Order name: IV Saline Lock; Complete Time: 22:04 michael 05/03 21:47 Order name: Labs collected and sent; Complete Time: 22:04 michael 05/03 21:47 Order name: O2 Per Protocol; Complete Time: 22:04 michael 05/03 21:47 Order name: O2 Sat Monitoring; Complete Time: 22:05 michael 05/03 22:27 Order name: US Carotid Artery Bilateral [facility] 05/03 22:35 Order name: CONS Physician Consult [facility] 05/03 22:46 Order name: CT Head Angio [facility] 05/03 22:47 Order name: Neck Angio [facility] 05/03 23:22 Order name: Head angio [facility] 05/03 21:47 Order name: Urine Dipstick-Ancillary (obtain specimen); Complete Time: 22:40 [facility] EC:29 Rate is 69 beats/min. Rhythm is regular. QRS [place] is Normal. IA interval is normal. QRS michael interval is normal. QT interval is normal. No Q waves. T waves are Normal. No ST changes noted. Clinical impression: NSR w/ Non-specific ST/T Changes and No evidence of ischemia. Interpreted by me. Reviewed by me. Administered Medications: 22:03 Drug: foLIC Acid 1 mg Route: IVPB; Site: right wrist; mg2 22:39 Follow up: Response: No adverse reaction; IV Status: Completed infusion : Drug: NS 0.9% 1000 ml Route: IV; Rate: 1 bolus; Site: right wrist; mg2 22:39 Follow up: Response: No adverse reaction; IV Status: Completed infusion : Drug: Aspirin Chewable Tablet 162 mg Route: PO; wh 22:39 Follow up: Response: No adverse reaction : Drug: PlaVIX 75 mg Route: PO; 22:40 Follow up: Response: No adverse reaction : Drug: ProTONIX 40 mg Route: IVP; Site: right forearm; wh 22:40 Follow up: Response: No adverse reaction 22:34 Drug: Lipitor 20 mg Route: PO; 22:40 Follow up: Response: No adverse reaction 23:02 Drug: Rocephin 1 grams Route: IV; Rate: per protocol; Site: right wrist; mg2 05/04 01:30 Follow up: IV Status: Completed infusion mg2 Point of Care Testing: Blood Glucose: 05/03 22:04 Blood Glucose: 122 mg/dL; bb Ranges: Critical Glucose Levels:Adult <50 mg/dl or >400 mg/dl <40 mg/dl or >180 mg/dl Disposition: 05/03/20 22:29 Hospitalization ordered by Derrek Walker for Inpatient Admission. Preliminary diagnosis are Transient cerebral ischemic attack, unspecified, Aphasia. - Bed requested for Telemetry/MedSurg (Inpatient). - Status is Inpatient Admission. mg2 - Condition is Fair. - Problem is new. - Symptoms have improved. NIH Stroke Scale - NIH Stroke Score Date: 05/03/2020 Time: 22:17 Total Score = 0 1a. Level of Consciousness (LOC) - 0(Alert) 1b. Level of Consciousness (LOC) (Year \\T\\ Age) - 0(Both) 1c. LOC Commands (Open \\T\\ Closes Eyes/Per Diem Physical Therapist Assistant) - 0(Both) 2. Best Gaze (Lateral Gaze Paresis) - 0(Normal) 3. Visual Field Loss - 0(No visual loss) 4. Facial Palsy - 0(Normal) 5a. Left Arm: Motor (10-second hold) - 0(No drift) 5b. Right Arm: Motor (10-second hold) - 0(No drift) 6a. Left Leg: Motor (5-second hold - always test supine) - 0(No drift) 6b. Right Leg: Motor (5-second hold - always test supine) - 0(No drift) 7. Limb Ataxia (finger/nose \\T\\ heel/clement - test with eyes open) - 0(Absent) 8. Sensory Loss (pinprick arms/legs/face) - 0(Normal) 9. Best Language: Aphasia (description/naming/reading) - 0(No aphasia) 10. Dysarthria (speech clarity - read or repeat words) - 0(Normal) 11. Extinction and Inattention (visual/tactile/auditory/spatial/personal) - 0(No abnormality) Initials: mg2 NIH Stroke Scale - NIH Stroke Score Date: 05/03/2020 Time: 22:21 Total Score = 0 1a. Level of Consciousness (LOC) - 0(Alert) 1b. Level of Consciousness (LOC) (Year \\T\\ Age) - 0(Both) 1c. LOC Commands (Open \\T\\ Closes Eyes/Per Diem Physical Therapist Assistant) - 0(Both) 2. Best Gaze (Lateral Gaze Paresis) - 0(Normal) 3. Visual Field Loss - 0(No visual loss) 4. Facial Palsy - 0(Normal) 5a. Left Arm: Motor (10-second hold) - 0(No drift) 5b. Right Arm: Motor (10-second hold) - 0(No drift) 6a. Left Leg: Motor (5-second hold - always test supine) - 0(No drift) 6b. Right Leg: Motor (5-second hold - always test supine) - 0(No drift) 7. Limb Ataxia (finger/nose \\T\\ heel/clement - test with eyes open) - 0(Absent) 8. Sensory Loss (pinprick arms/legs/face) - 0(Normal) 9. Best Language: Aphasia (description/naming/reading) - 0(No aphasia) 10. Dysarthria (speech clarity - read or repeat words) - 0(Normal) 11. Extinction and Inattention (visual/tactile/auditory/spatial/personal) - 0(No abnormality) Initials: michael Diallo: Dispatcher [employer] EDMS Luis Cerda MD MD cha Garcia, Cindy, RN RN Robbin Macario RN RN Dale Medina RN RN [facility] Jacquie Crump RN RN ll1 Corrections: (The following items were deleted from the chart) 22:01 21:48 Chest Single View+RAD.RAD.BRZ ordered. EDMS EDMS 22:04 21:49 CT-STROKE BRAIN W/O CONTRAST+CT.RAD.BRZ ordered. EDOH EDMS 23:59 21:46 Basic Metabolic Panel ordered. EDOH EDMS :59 21:47 CBC with Automated Diff ordered. EDOH EDMS 23:59 21:47 Protime (+INR) ordered. EDOH EDMS 23:59 21:47 PTT, Activated Partial Thromb ordered. EDOH EDOH 05/04 01:11 05/03 22:29 Hospitalization Ordered by Derrek Walker MD for Inpatient Admission. cg Preliminary diagnosis is Transient cerebral ischemic attack, unspecified; Aphasia. Bed requested for Telemetry/MedSurg (Inpatient). Status is Inpatient Admission. Condition is Fair. Problem is new. Symptoms have improved. michael 05/04 01:30 01:11 05/03/2020 22:29 Hospitalization Ordered by Derrek Walker MD for Inpatient mg2 Admission. Preliminary diagnosis is Transient cerebral ischemic attack, unspecified; Aphasia. Bed requested for Telemetry/MedSurg (Inpatient). Status is Inpatient Admission. Condition is Fair. Problem is new. Symptoms have improved. cg
[2020-05-03] MEDS ORDERED: PANTOPRAZOLE 40 MG INJ ONE (22:42)
[2020-05-03] MEDS ORDERED: CLOPIDOGREL 75 MG TABLET ONE (22:42)
[2020-05-03] MEDS ORDERED: ASPIRIN 81 MG CHEWABLE TABLET ONE (22:42)
[2020-05-03] MEDS ORDERED: ATORVASTATIN 20 MG TAB ONE (22:49)
[2020-05-03 22:54] LABS: ALT/SGPT 22 U/L (12-78); AST/SGOT 19 U/L (15-37); Albumin 3.8 g/dL (3.4-5.0); Alkaline Phosphatase 116 U/L (45-117); BUN Blood Urea Nitrogen 21 mg/dL (7-18); Bicarbonate 27 mmol/L (21-32); Bilirubin Direct < 0.1 mg/dL (0-0.2); Bilirubin Total 0.2 mg/dL (0.2-1.0); Glucose Level 123 mg/dL (74-106); Magnesium 2.5 mg/dL (1.8-2.4); NT PRO-BNP 104 pg/mL (<450); Potassium 3.8 mmol/L (3.5-5.1); Protein, Total 7.4 g/dL (6.4-8.2); Sodium Level 142 mmol/L (136-145); Troponin (Emerg Dept Use Only) < 0.02 ng/mL (0.0-0.045)
[2020-05-03 23:03] LABS: C-Reactive Protein < 2.90 mg/L (<3.00)
[2020-05-03] MEDS ORDERED: CEFTRIAXONE/SWI 1gm 1 GM/10 ML SYR ONE (23:12)
[2020-05-04 00:48] LABS: Urine Blood 1+ (NEG); Urine Glucose NEGATIVE (NEG); Urine Protein NEGATIVE (NEG); Urine Specific Gravity 1.015 (1.005-1.030)
[2020-05-04] MEDS ORDERED: ONDANSETRON 4 MG/2 ML VIAL IV PRN (01:58)
[2020-05-04] MEDS ORDERED: NA CHLORIDE 0.9% 1,000 ML IV SCH ×2 (01:58→06:30)
[2020-05-04] MEDS ORDERED: ACETAMINOPHEN 325 MG TABLET PO PRN (01:58)
[2020-05-04 03:57] VITALS: BMI 21.7
[2020-05-04 06:20] LABS: Absolute Lymphocytes (CBC) 1.9 K/uL (0.7-4.9); Basophils % 0.8 % (0-1.3); Hematocrit 30.3 % (36.0-45.0); Lymphocytes % 33.2 % (15.3-44.8); MPV 9.6 fL (7.6-11.3); RBC Red Blood Cell Count 3.38 M/uL (3.86-4.86)
[2020-05-04] MEDS ORDERED: ACETAMINOPHEN 500 MG TAB PO PRN (06:29)
[2020-05-04 06:37] LABS: Potassium 4.1 mmol/L (3.5-5.1)
--- NOTE | 2020-05-04 07:26 | RAD REPORT ---
EXAM DESCRIPTION: RAD - Chest Single View - 05/03/2020 10:06 pm CLINICAL HISTORY: stroke, Stroke protocol chest film COMPARISON: Portable July 2018 TECHNIQUE: AP portable chest image was obtained 05/03/2020 10:06 pm . FINDINGS: Chronic interstitial lung pattern matches comparison. No focal mass, consolidation, failur e or volume overload finding. Heart and vasculature are normal. No measurable pleural effusion and no pneumothorax. No acute bony abnormality seen. No acute aortic findings suspected. IMPRESSION: No acute cardiopulmonary process. Chronic interstitial lung pattern matches comparison from 2019.
[2020-05-04] MEDS ORDERED: LORazepam 2 MG/ML VIAL IV STA (08:23)
[2020-05-04] MEDS ORDERED: FOLIC ACID 1 MG in NA CHLORIDE 0.9% 50 ML IV SCH (09:00)
[2020-05-04] MEDS ORDERED: FAMOTIDINE 20 MG/2 ML VIAL IV SCH (09:00)
[2020-05-04] MEDS ORDERED: CLOPIDOGREL 75 MG TABLET PO SCH (09:00)
[2020-05-04] MEDS ORDERED: ASPIRIN 81 MG CHEWABLE TABLET PO SCH (09:00)
[2020-05-04] MEDS ORDERED: FAMOTIDINE 20 MG TAB PO SCH (09:00)
[2020-05-04 09:03] VITALS: O2SAT 97
--- NOTE | 2020-05-04 09:45 | RAD REPORT ---
EXAM DESCRIPTION: MRI - Brain W/Wo Cont - 05/04/2020 9:34 am CLINICAL HISTORY: TIA/CVA COMPARISON: MRA Head Wo Cont dated 05/04/2020; Head angio dated 05/03/2020; Neck Angio dated 05/03/2020; C t Stroke Brain Wo Cont dated 05/03/2020 TECHNIQUE: Sagittal and axial T1-weighted images were obtained. Axial PD/heavily T2-weighted and T2- FLAIR images were obtained along with axial DWI/ADC mapping sequences. Coronal heavily T2 weighted s equence obtained. Axial and coronal post-contrast T1-weighted images were also obtained. A ml Multi rakesh contrast following utilized. FINDINGS: No intracranial hemorrhage, mass or acute infarction. No edema or shift of midline struct ures. No extra-axial fluid collections. Atrophy changes are mild for age with ventricles in proportio n. Numerous T2/IR hyperintensities are present in the cerebral white matter most pronounced adjacent to the trigone of each lateral ventricle. Patient has focal signal abnormality involving the cortical and subcortical tissues posterior left parietal lobe near the midline. There is no acute signal abno rmality in the diffusion or ADC mapping sequences. Signal voids are seen as a normal finding in the m ajor intracranial vessels. Post-contrast images show normal enhancement. No dural thickening. Mastoid air cells and paranasal sinuses are clear. IMPRESSION: No acute infarction changes are present. No mass, hemorrhage or other acute intracranial process identifiable. Atrophy changes are mild. Patient has mild to moderate chronic ischemic change in the cerebral white matter and subacute to chronic CVA changes in the posterior left parietal lobe near the midline.
--- NOTE | 2020-05-04 09:50 | RAD REPORT ---
EXAM DESCRIPTION: MRI - MRA Head Wo Cont - 05/04/2020 9:34 am CLINICAL HISTORY: CVA COMPARISON: Brain W/Wo Cont dated 05/04/2020; MRA Neck W/Wo Cont dated 05/04/2020 CT head same date, CT angio head same date FINDINGS: 3D noncontrast [id number] MR angiography of the [place] was performed. No aneurysm or vascular malformation is seen. Forward flow seen in codominant vertebral arteries. Foc al 50% stenosis seen at the left M1 M2 junction. Mild atherosclerotic changes are present in the far peripheral branches. The visualized dural venous sinuses appear patent. Exam suffers from motion degradation. IMPRESSION: No occlusion or significant flow restricting lesion identifiable. Focal stenosis approximately 50% at the M1 M2 branch point left middle cerebral artery. Mild atherosclerotic changes in the far peripheral cerebral vasculature.
--- NOTE | 2020-05-04 09:52 | RAD REPORT ---
EXAM DESCRIPTION: MRI - MRA Neck W/Wo Cont - 05/04/2020 9:33 am CLINICAL HISTORY: CVA COMPARISON: CTA neck May 03 TECHNIQUE: MR angiography of the cervical vasculature performed. Coronal imaging plane acquisition u tilized. A MultiHance contrast volume was utilized. Coronal reformatted images were generated and re viewed. Vertical axis 3D rotational projections obtained using maximum intensity projection protocol. FINDINGS: Aortic arch is bovine configuration with no great vessel origin stenosis. Codominant verte bral arteries show no origins stenoses. Mild narrowing present at the origin of the left carotid bulb . This is less than 50% narrowing. Bilateral carotid and vertebral vasculature otherwise without janet tional area of narrowing. No dissection or suspicious findings otherwise noted. IMPRESSION: Mild less than 50% narrowing at the left CCA/ICA junction. Exam is otherwise unremarkabl e.
--- NOTE | 2020-05-04 10:53 | RAD REPORT ---
EXAM DESCRIPTION: US - CP - 05/04/2020 10:42 am CLINICAL HISTORY: TIA;Slurred speech COMPARISON: <Comparisons> TECHNIQUE: Real-time sonographic evaluation of bilateral carotid and vertebral systems was performed . Finley scale and Doppler interrogation were performed with waveform tracing bilaterally. FINDINGS: Normal high resistance waveforms are noted in both external carotid arteries. The common c arotid arteries and internal carotid arteries show normal low resistance waveforms. Bilateral calcified plaquing changes are present without visual evidence for significant luminal narr owing. Peak systolic and end diastolic velocity values and the ICA/CCA ratios are in the non-hemodyna mically significant range. Antegrade flow seen in both vertebral arteries. Velocity values and ratios were recorded and are retained in the patient's imaging records. IMPRESSION: Calcified plaquing changes are present without hemodynamically significant stenoses. Sonographic findings are not significantly different from the separately reported MRA neck findings.
--- NOTE | 2020-05-04 11:30 | RAD REPORT ---
EXAM DESCRIPTION: CT - Ct Stroke Brain Wo Cont - 05/04/2020 7:00 am ADDENDUM #1 The findings were called to JAMILAH Julian at 10: 16 PM central time. Electronically signed by: Jhonny Craig MD 05/04/2020 12:59 AM DIRECTOR OF LABOR RELATIONS End of Addendum EXAM DESCRIPTION: Ct Stroke Brain Wo Cont CLINICAL HISTORY: 84 years Female stroke COMPARISON: None. TECHNIQUE: Contiguous axial CT images obtained through the brain without IV contrast. This exam was performed according to our department optimization program which includes automated exp osure control, adjustment of the mA and/or kv according to patient size and/or use of iterative recon struction technique. FINDINGS: The ventricles and sulci appear unremarkable. No mass lesions. No acute hemorrhage. Microvascular ischemic changes. Atherosclerotic calcifications most pronounced in the distal right vertebral artery. No fluid or significant mucosal thickening in the visualized paranasal sinuses. No depressed calvarial fractures. IMPRESSION: No acute intracranial abnormality is identified. Electronically signed by: Jhonny Craig MD 05/03/2020 10:12 PM DIRECTOR OF LABOR RELATIONS Due to temporary technical issues with the PACS/Fluency reporting system, reports are being signed by the in house radiologist without review as a courtesy to ensure prompt reporting. The interpreting r adiologist is fully responsible for the content of the report.
--- NOTE | 2020-05-04 11:31 | RAD REPORT ---
EXAM DESCRIPTION: CT - Neck Angio - 05/04/2020 6:58 am CLINICAL HISTORY: 84 years, Female, numbness of arm COMPARISON: Prior CT scan of the head without contrast performed 05/03/2020. TECHNIQUE: Multiple transaxial tomograms from the aortic arch through the brain were performed after administration of large bolus of IV contrast for complete opacification of the carotid arteries and intracranial vessels. No dosing amount was provided for interpretation Subsequent 2-D and 3-D multiplanar reformats, volume rendering technique and maximum intensity projec tion images were generated and reviewed An individualized dose optimization technique, Automated Exposure Control, was utilized for the perfo rmed procedure. FINDINGS: Ascending aorta: There is a normal branching pattern of the great vessels. There are c odominant vertebral arteries which demonstrate normal opacification. No origin stenosis is identifi ed. Right carotid artery: Normal opacification is demonstrated within the right common carotid artery a nd at the carotid bifurcation. There is no evidence for significant plaque formation. There is normal appearance of the proximal mid distal aspect of the right internal carotid artery. No focal areas of stenosis and/or occlusion. Left carotid artery: Normal opacification is demonstrated within the left common carotid artery an d at the carotid bifurcation. There is small peripheral plaque formation within the carotid bulb. The re is normal appearance of the proximal mid distal aspect of the left internal carotid artery. No foc al areas of stenosis and/or occlusion. . Intracranial circulation: Intracranial portions of the internal carotid arteries the cavernous sinus portions demonstrates no focal areas of significant stenosis. There is normal opacification within th e anterior circulation without evidence of intracranial aneurysm. The middle cerebral arteries, ant erior cerebral arteries and its branches demonstrate normal opacification with no evidence for signif icant stenosis aneurysm and/or occlusion. There is normal venous drainage. Vertebrobasilar system: The posterior circulation demonstrate codominant bilateral vertebral arteries with no evidence for significant stenosis and/or evidence for significant dissection. The vertebroba silar system and MANAGER SCIENCE demonstrate to be normal with no evidence for aneurysm and/or occlusion. Minimal plaque formation is identified within the right side V4 segment vertebral artery. Grossly the brain parenchyma demonstrate normal bedolla-white matter differentiation with no evidence fo r mass effect and/or midline shift. The skull base and intracranial structures demonstrate to be within normal limits. Lung apex: No gross abnormalities are noted within the apices. IMPRESSION: UNREMARKABLE CTA INTRACRANIAL VESSELS WITH NO EVIDENCE FOR SIGNIFICANT ANEURYSM, STENOSI S AND/OR OCCLUSION. GROSSLY UNREMARKABLE COMMON AND INTERNAL CAROTID ARTERIES. NORMAL CODOMINANT BILATERAL VERTEBRAL ARTERIES. GROSSLY UNREMARKABLE BRAIN WITH CONTRAST Electronically signed by: Kaleb Negron MD 05/04/2020 12:28 AM EVAPORATOR OPERATOR Due to temporary technical issues with the PACS/Fluency reporting system, reports are being signed by the in house radiologist without review as a courtesy to ensure prompt reporting. The interpreting r adiologist is fully responsible for the content of the report.
--- NOTE | 2020-05-04 11:34 | RAD REPORT ---
EXAM DESCRIPTION: CT - Head angio - 05/04/2020 6:57 am CLINICAL HISTORY: 84 years, Female, numbness of arm COMPARISON: Prior CT scan of the head without contrast performed 05/03/2020. TECHNIQUE: Multiple transaxial tomograms from the aortic arch through the brain were performed after administration of large bolus of IV contrast for complete opacification of the carotid arteries and intracranial vessels. No dosing amount was provided for interpretation Subsequent 2-D and 3-D multiplanar reformats, volume rendering technique and maximum intensity projec tion images were generated and reviewed An individualized dose optimization technique, Automated Exposure Control, was utilized for the perfo rmed procedure. FINDINGS: Ascending aorta: There is a normal branching pattern of the great vessels. There are c odominant vertebral arteries which demonstrate normal opacification. No origin stenosis is identifi ed. Right carotid artery: Normal opacification is demonstrated within the right common carotid artery a nd at the carotid bifurcation. There is no evidence for significant plaque formation. There is normal appearance of the proximal mid distal aspect of the right internal carotid artery. No focal areas of stenosis and/or occlusion. Left carotid artery: Normal opacification is demonstrated within the left common carotid artery an d at the carotid bifurcation. There is small peripheral plaque formation within the carotid bulb. The re is normal appearance of the proximal mid distal aspect of the left internal carotid artery. No foc al areas of stenosis and/or occlusion. . Intracranial circulation: Intracranial portions of the internal carotid arteries the cavernous sinus portions demonstrates no focal areas of significant stenosis. There is normal opacification within th e anterior circulation without evidence of intracranial aneurysm. The middle cerebral arteries, ant erior cerebral arteries and its branches demonstrate normal opacification with no evidence for signif icant stenosis aneurysm and/or occlusion. There is normal venous drainage. Vertebrobasilar system: The posterior circulation demonstrate codominant bilateral vertebral arteries with no evidence for significant stenosis and/or evidence for significant dissection. The vertebroba silar system and SALES OFFICE ADMINISTRATOR demonstrate to be normal with no evidence for aneurysm and/or occlusion. Minimal plaque formation is identified within the right side V4 segment vertebral artery. Grossly the brain parenchyma demonstrate normal bedolla-white matter differentiation with no evidence fo r mass effect and/or midline shift. The skull base and intracranial structures demonstrate to be within normal limits. Lung apex: No gross abnormalities are noted within the apices. IMPRESSION: UNREMARKABLE CTA INTRACRANIAL VESSELS WITH NO EVIDENCE FOR SIGNIFICANT ANEURYSM, STENOSI S AND/OR OCCLUSION. GROSSLY UNREMARKABLE COMMON AND INTERNAL CAROTID ARTERIES. NORMAL CODOMINANT BILATERAL VERTEBRAL ARTERIES. GROSSLY UNREMARKABLE BRAIN WITH CONTRAST Electronically signed by: Kaleb Negron MD 05/04/2020 12:28 AM GAME AUTHOR Due to temporary technical issues with the PACS/Fluency reporting system, reports are being signed by the in house radiologist without review as a courtesy to ensure prompt reporting. The interpreting r adiologist is fully responsible for the content of the report.
[2020-05-04 12:16] VITALS: BP 176/61; TEMP 97.1
--- NOTE | 2020-05-04 14:01 | P.SSS ---
Patient History Date of Service: 05/04/20 Reason for admission: R SIDE BODY TINGLING. History of Present Illness: SIDNEY HAS MILD TINGLING OF R SIDE OF BODY WITHOUT ANY PARALYSIS YESTERDAY. SHE IS BACK TO HER BASELINE NOW. HER MRI DOES NOT SHOE STROKE. HER MRA SHOWS SOME PLAQUES BUT NO STENOSIS. SHE IS MEDICALLY STABLE TO GO HOME ON PLAVIX AND ATORVASTATIN. SIDNEY DOES NOT TOLERATE ANY MEDS. I AM NOT SURE IF SHE WILL BE ABLE TO TAKE THESE ESSENTIAL MEDS. Allergies butorphanol [From Stadol] Adverse Reaction (Verified 05/04/20 03:58) Rash Home Medications: Famotidine [Pepcid] 40 mg PO DAILY 08/29/18 Acetaminophen [Tylenol Extra Strength] 500 mg PO Q6HP PRN 05/04/20 Atorvastatin Calcium [Lipitor*] 20 mg PO BEDTIME #90 tab 05/04/20 Clopidogrel Bisulfate [Plavix*] 75 mg PO DAILY #90 tablet 05/04/20 bisacodyL [Dulcolax*] 1 cap PO DAILYPRN PRN 05/04/20 - Past Medical/Surgical History Has patient received pneumonia vaccine in the past: Yes Diabetic: No -: Breast CA -: R mastectomy -: left shoulder sx - Family History Mother -: Stroke, Cancer Father Notes: parkinsons - Social History Smoking Status: Never smoker Alcohol use: No CD- Drugs: No Caffeine use: No Place of Residence: Home Review of Systems 10-point ROS is otherwise unremarkable Physical Examination - Vital Signs Temperature: 97.1 F Blood Pressure: 176/61 Pulse: 74 Respirations: 16 Pulse Ox (%): 99 - Physical Exam General: Oriented x3, Mild distress HEENT: Atraumatic, PERRLA, Mucous membr. moist/pink, EOMI, Sclerae nonicteric Neck: Supple, 2+ carotid pulse no bruit, No LAD, Without JVD or thyroid abnorm ality Respiratory: Clear to auscultation bilaterally, Normal air movement Cardiovascular: Regular rate/rhythm, Normal S1 S2 Gastrointestinal: Normal bowel sounds, No tenderness Musculoskeletal: No tenderness Integumentary: No rashes Neurological: Normal gait, Normal speech, Normal strength at 5/5 x4 extr, Normal tone, Normal affect Lymphatics: No axilla or inguinal lymphadenopathy - Studies Laboratory Data (last 24 hrs) 05/03/20 22:00: APTT 29.3 05/03/20 22:00: Triglycerides 365 H, Cholesterol 205 H, HDL Cholesterol 57, Cholesterol/HDL Ratio 3.60 05/03/20 22:00: PT 11.4, INR 0.99 05/03/20 22:00: WBC 6.00, Hgb 12.3, Hct 35.5 L, Plt Count 218 05/03/20 22:00: Sodium 142, Potassium 3.8, BUN 21 H, Creatinine 1.26, Glucose 123 H, Magnesium 2.5 H, Total Bilirubin 0.2, AST 19, ALT 22, Alkaline Phosphatase 116 05/03/20 21:46: PT Cancelled, INR Cancelled, APTT Cancelled 05/03/20 21:46: WBC Cancelled, Hgb Cancelled, Hct Cancelled, Plt Count Cancelled 05/03/20 21:46: Sodium Cancelled, Potassium Cancelled, BUN Cancelled, Creatinine Cancelled, Glucose Cancelled - Diagnosis (Problem(s)) (1) TIA (transient ischemic attack) Current Visit: Yes Status: Acute Plan: START PLAVIX AND ATORVASTATIN. PATIENT IS ABLE TO GO HOME SHE IS STABLE. - Disposition Disposition: ROUTINE DISCHARGE Condition: FAIR
[2020-05-04] MEDS ORDERED: ATORVASTATIN 20 MG TAB PO SCH (21:00)
--- NOTE | 2020-05-04 22:19 | CON ---
Reason For Consultation: Consultation called because of TIA. History Of Present Illness: Ms. Flynn is an 84-year-old right-handed patient, who develope d sudden onset right, then forearm and arm along with her right face and body numbness and weakness. Her son who was there witnessed the event and noted she had slurred and confused, disoriented speech when she attempted to tell him what was happening. She came to [facility]. The event bega n around 2115 hours on 05/03/2020. When she arrived, symptoms began to improve and her NIH Stroke Sc katya in the emergency room was 0. Her head CT scan showed no acute ischemic or hemorrhagic change. S peter was admitted for workup of a transient ischemic attack. Her brain MRI with MRA showed no acute is chemic or hemorrhagic change. No hemodynamically significant stenosis was seen on Doppler study in t he carotids. Again, intracranial vessels, no high-grade stenosis identified. Laboratory Studies: Essentially unremarkable complete blood count with differential. Coagulation pa marielena unremarkable. Her basic metabolic panel was essentially unremarkable. She did have a slightly e levated glucose of max 153 and her calcium initially 8.6, after hydration 8.0. Magnesium was 2.5 bef ore hydration. Total cholesterol elevated at 205, HDL 57, LDL 75, triglycerides elevated at 365. Ur inalysis showed trace esterase, 1+ blood, and she has pending cultures. COVID-19 was negative. Her chest x-ray showed no acute cardiopulmonary process. Carotid ultrasound as indicated. No evidence o f hemodynamically significant stenosis was seen. Past Medical History: As indicated. Breast cancer. Past Surgical History: Right mastectomy, left shoulder surgery, and cataract surgery. Social History: No alcohol, tobacco, or IV drug use. Family History: Noncontributory. Allergies: STADOL. Review of Systems: As indicated, she had right-sided numbness, weakness of face, arm, and leg and difficulty with her sp eech and dysarthria that has resolved. Her review of systems is otherwise negative for any fevers, c hills, nausea, vomiting, myalgias, arthralgias, headache, weight change, rash, psychiatric complaints , gastrointestinal complaints, or genitourinary issues. Physical Examination: Vital Signs: Blood pressure 176/61, pulse 74, respiratory rate 16, temperature 97.1, oxygen saturati on 99% on room air. Weight 140 pounds, height 5 feet 1 inch, BMI 21. General: Ms. Flynn is resting in bed. Son is at the bedside. HEENT: She is normocephalic, atraumatic. Sclerae anicteric. Oropharynx is pink and moist. Neck: Supple. Chest: Clear. Heart: Regular. Extremities: No edema, cyanosis, or clubbing. Neurologic: Alert, oriented to situation, place, and person. She follows commands appropriately. C ranial nerves 2 through 12, she has an asymmetry of her blinking, slower blinking noted on the right, perhaps there is some mild subtle residual right difficulty closing the eyes. Otherwise, face appea rs symmetric with equal excursions on smiling and tongue and palate are in midline. Motor examinatio n, upper extremities 5/5 proximally and distally, lower extremities 5/5 proximally and distally. Sen mae exam intact in the upper and lower extremities. No asymmetries. Reflexes 2+ in upper and lower extremities. Coordination intact in the upper and lower extremities. Gait with good stance, stride , and arm swing. Assessment: Ms. Flynn is an 84-year-old patient with a transient ischemic attack in the setting of p ossible untreated hypertension. She was given aspirin in the emergency room and has been on aspirin 81 mg now daily. She is on Lipitor 20 mg at bedtime. She did receive a gram of Rocephin for possibl e urinary tract infection. She has actually been on Plavix as well. She will be discharged home on aspirin, Plavix, folic acid along with a statin. Blood pressures will be followed and she will follo w up after discharge with Dr. Walker, primary care physician. She will make an appointment with my office and follow up within a month. EVAN/HAL Voice ID: [id number] Report ID: [id number]
== END 2020-05-04 16:20 | disposition home or self-care (01) ==
LOC: ER 21:39 → INTOOBSV 22:33 → ERHOLD 22:33 → 2ND 05-04 01:17
PROVIDERS: ADMIT Internal Medicine; ATTEND Internal Medicine
DX: G45.9 Transient cerebral ischemic attack, unspecified (principal); Z85.3 Personal history of malignant neoplasm of breast; Z20.822 Contact with and (suspected) exposure to COVID-19
CPT/HCPCS: 93005; 87088; 85025 ×2; 87086; 80048 ×2; 36415; 83735; 85610; 80061; 82947; 80076; 85730; 85652; 81003; 84484; 83880; 86140; 70496; 70498; 70450; 71045; 93880; 70553; 70544; 70549; U0003; Q9967; A9577; C9113; J0696; J7030 ×3; 96365; 96366; 96367; 96375; 99285; G0378